=== PATIENT | male | born 1955 | race Caucasian/White ===

== ENCOUNTER 2018-11-15 10:23 | Inpatient (IN) ==
[2018-11-15] MEDS ORDERED: KETOROLAC TROMETHAMINE 15 MG/ML VIAL IV STA (10:46)
[2018-11-15] MEDS ORDERED: ONDANSETRON INJ 2 MG/ML 2 ML VIAL IV STA (10:46)
[2018-11-15] MEDS ORDERED: MoRPHine SULFATE 4 MG/ML 1 ML CARP\\VIAL IV PRN (10:46)
[2018-11-15] MEDS ORDERED: SODIUM CHLORIDE 0.9% 1000ML 1,000 ML IV SCH (11:00)
[2018-11-15 11:11] LABS: Appearance Urine Clear (Clear); Bilirubin Urine Negative (Negative); Color Urine Yellow; Glucose Urine UA Negative (Negative); Ketones Urine Negative (Negative); Leukocyte Esterase Urine Negative (Negative); Nitrite Urine Negative (Negative); Protein Urine Negative (Negative); Specific Gravity Urine 1.029 (1.000-1.030); Urobilinogen Urine Negative (Negative); pH Urine 5.5 (4.5-7.5)
[2018-11-15 11:23] LABS: Basophils # (auto) 0.02 K/uL (0-0.2); Basophils % (auto) 0.2 %; Eosinophils # (auto) 0.06 K/uL (0-0.5); Eosinophils % (auto) 0.6 %; Hematocrit (blood only) 44.5 % (42-52); Hemoglobin 15.4 g/dL (14.0-18.0); Immature Granulocytes # (auto) 0.01 K/uL (0.00-0.02); Immature Granulocytes % (auto) 0.1 %; Lymphocytes # (auto) 0.84 K/uL (1.2-3.4); Lymphocytes % (auto) 8.5 %; Mean Corpuscular Hgb Conc 34.6 g/dL (32-36); Mean Corpuscular Volume 96.1 fL (80-100); Mean Platelet Volume 10.4 fL (7.4-10.4); Monocytes # (auto) 0.63 K/uL (0.11-0.59); Monocytes % (auto) 6.3 %; Neutrophils # (auto) 8.38 K/uL (1.4-6.5); Neutrophils % (auto) 84.3 %; Platelet Count 196 K/uL (130-400); RDW Coefficient of Variation 12.8 % (11.5-14.5); RDW Standard Deviation 44.8 fL (36.4-46.3); Red Blood Count 4.63 M/uL (4.7-6.1); White Blood Count 9.94 K/uL (4.8-10.8)
[2018-11-15 11:32] LABS: Albumin Level 3.5 gm/dl (3.4-5.0); BUN Creatinine Ratio 22.7 (10-20); Creatinine Clr Calc Pharmacy 91.8 ml/min; Est GFR (African American) 95.4; Est GFR (Non-African American) 82.3; Potassium 3.6 mmol/L (3.5-5.1)
[2018-11-15 11:32] LABS: Influenza B virus by PCR Neg for Influ B (Neg)
[2018-11-15 11:33] LABS: Albumin Globulin Ratio 0.8 (0.9-2); Globulin 4.2 gm/dl (2.5-4.0); Total Protein 7.7 gm/dl (6.4-8.2)
--- NOTE | 2018-11-15 11:35 | XRay Report ---
XR chest 1V portable CLINICAL HISTORY: 63 years-old Male presenting with sob. TECHNIQUE: Portable upright AP view of the chest was obtained. COMPARISON: 04/26/2011. FINDINGS: Atherosclerosis of the aortic arch. Cardiac silhouette borderline enlarged. Mild pulmonary vascular p rominence. Overall coarsened lung markings. Suggestion of several nodular opacities. Osseous structur es normal. Lucency subjacent to the right hemidiaphragm may be due to skin folds versus pneumoperiton eum. IMPRESSION: 1. Nodular opacities may correlate with the prior known pulmonary nodules. Interval growth or new no dules cannot be excluded. Less likely, these could be on an inflammatory or infectious basis. 2. Apparent lucency subjacent to the right hemidiaphragm. This raises concern for pneumoperitoneum i n the appropriate clinical setting. Consider upright abdominal radiograph. The report will be called/faxed according to standard departmental protocol. Electronically signed by: Albert Meier M.D. 11/15/2018 11:33 AM
--- NOTE | 2018-11-15 11:57 | Emergency Department Note ---
Entered by Axel Quevedo acting as a scribe for History of Present Illness General Chief complaint: Cough Stated complaint: COUGH,FEVER,SEVERE ABD PAIN Time Seen by Provider: 11/15/18 10:44 Source: patient History of Present Illness Onset (ago): day(s) 4 Location: chest Pain Consistency: + other (persistent) Maximum Pain Intensity: 8 Quality: + other (productive cough) Associated symptoms: + other (Positive for abdominal pain, intermittent fever, and worsening SOB. Negative for nausea.) The patient is a 63 year old male who presents to the emergency department with complaints of a persistent cough beginning four days ago. The patient states that he woke up four days ago and felt as though he had some phlegm in his chest. He notes that his cough is productive and he reports that he has been producing yellow mucus. The patient states that he went to [facility] three days ago and was given prednisone and doxycycline. He notes that he woke up this morning with constant, severe, abdominal pain. He reports that his abdominal pain occasionally radiates upward to his diaphragm. The patient states that his stomach feels hard and he notes that his abdominal pain worsens with movement and when he coughs. He rates his abdominal pain as an 8/10. He also complains of an intermittent fever and worsening SOB. He denies any nausea. He reports that he has been having trouble with his lungs and has a biopsy scheduled. Home Medications Home Medications Medication Instructions Recorded Confirmed Type Tumeric 2 cap PO QAM 11/15/18 11/15/18 History albuterol sulfate [Ventolin HFA] 2 puff INHALATION Q6H PRN 11/15/18 11/15/18 History ascorbic acid (vitamin C) [Vitamin 100 mg PO DAILY 11/15/18 11/15/18 History C] aspirin 81 mg PO QAM 11/15/18 11/15/18 History coenzyme Q10 [CoQ-10] 300 mg PO QAM 11/15/18 11/15/18 History doxycycline hyclate 100 mg PO BID 11/15/18 11/15/18 History esomeprazole magnesium 20 mg PO DAILY 11/15/18 11/15/18 History ezetimibe [Zetia] 10 mg PO QAM 11/15/18 11/15/18 History fluticasone furoate [Arnuity 1 dose INHALATION QAM 11/15/18 11/15/18 History Ellipta] ibuprofen 800 mg PO QID PRN 11/15/18 11/15/18 History krill oil 500 mg PO DAILY 11/15/18 11/15/18 History levothyroxine 125 mcg PO DAILY 11/15/18 11/15/18 History omega 4-fgf-lhh-fish oil [Fish Oil] 3 cap PO QAM 11/15/18 11/15/18 History lyxbogdkfzrfe-mipjzktrxrgdg-NR 2 tab PO Q6H PRN 11/15/18 11/15/18 History [Tylenol Cold Head Congest Sevr] prednisone 0 mg PO UD 11/15/18 11/15/18 History rosuvastatin [Crestor] 20 mg PO QAM 11/15/18 11/15/18 History Allergies Allergy/AdvReac Type Severity Reaction Status Date / Time No Known Allergies Allergy Unknown Verified 11/15/18 11:50 Past Med/Surg History Medical History Asthma, moderate persistent (Chronic) Pulmonary nodules (Chronic) Hypothyroidism (Chronic) CAD (coronary artery disease) (Chronic) 04/2018-cardiac catheterization demonstrated diffuse minor irregularities with nonobstructive CAD Dyslipidemia (Chronic) Reflux esophagitis (Chronic) Viral disease (Inactive 04/29/11) Surgical History H/O colonoscopy (Chronic) 2010-diverticulosis throughout the sigmoid and ascending colon H/O vasectomy (Chronic) H/O repair of left rotator cuff (Chronic) History of surgical removal of ganglion cyst (Chronic) S/P right knee arthroscopy (Chronic) S/P left knee arthroscopy (Chronic) Family History Father Lung cancer Brother Heart attack, Onset Age: 56 Social History Current Living Situation: Spouse Other Information That Helps Us Care for You: No Feels Safe at Home: Yes Safety Concerns: Feels Safe At This Time Smoking Status: Never smoker Do You Dip or Chew Tobacco: No Second Hand Exposure: No Tobacco Cessation Education Requested by Patient: No Hx Alcohol Use: Yes Alcohol Intake Frequency: 0-2 drinks per day Hx Substance Use: No Beliefs That Will Affect Care: None Preferred Language: Ukrainian Communication Ability: Effective Fire Tender Required: No Review of Systems See HPI for pertinent positives & negatives. and A total of 10 systems reviewed and were otherwise negative Physical Exam Vital Signs Vital Signs - 24 hr 11/15/18 10:25 11/15/18 10:48 11/15/18 10:51 Temperature 37.0 C Temperature Source Oral Sepsis Recent Fever Within 48 Hours Yes Sepsis New/Unexplained Change in Mental Status No Sepsis Action Taken by Nursing No Action Required Pulse Rate 103 H Pulse Rate [Left Radial] 96 H Pulse Rhythm [Left Radial] Pulse Strength [Left Radial] Respiratory Rate 20 20 Respiratory Effort / Characteristics Respiratory Depth Respiratory Pattern Blood Pressure 124/72 Blood Pressure [Left Arm] 125/65 Blood Pressure Mean 89 Blood Pressure Mean [Left Arm] 85 Blood Pressure Position [Left Arm] Pulse Oximetry 98 99 Oxygen Delivery Method Room Air Room Air Room Air 11/15/18 12:14 11/15/18 13:20 11/15/18 13:57 Temperature Temperature Source Sepsis Recent Fever Within 48 Hours Sepsis New/Unexplained Change in Mental Status Sepsis Action Taken by Nursing Pulse Rate Pulse Rate [Left Radial] 92 H 93 H Pulse Rhythm [Left Radial] Pulse Strength [Left Radial] Respiratory Rate 20 20 Respiratory Effort / Characteristics Non-Labored Spontaneous Respiratory Depth Normal Respiratory Pattern Regular Blood Pressure Blood Pressure [Left Arm] 133/66 139/69 Blood Pressure Mean Blood Pressure Mean [Left Arm] 88 92 Blood Pressure Position [Left Arm] Pulse Oximetry 98 93 Oxygen Delivery Method Room Air Room Air Room Air 11/15/18 14:27 11/15/18 15:03 11/15/18 15:29 Temperature 37.0 C Temperature Source Oral Sepsis Recent Fever Within 48 Hours Sepsis New/Unexplained Change in Mental Status Sepsis Action Taken by Nursing Pulse Rate Pulse Rate [Left Radial] 92 H 90 Pulse Rhythm [Left Radial] Regular Pulse Strength [Left Radial] Normal Respiratory Rate 18 18 Respiratory Effort / Characteristics Non-Labored Spontaneous Non-Labored Spontaneous Respiratory Depth Normal Normal Respiratory Pattern Regular Regular Blood Pressure Blood Pressure [Left Arm] 114/67 116/66 Blood Pressure Mean Blood Pressure Mean [Left Arm] 82 82 Blood Pressure Position [Left Arm] Lying Lying Pulse Oximetry 94 94 Oxygen Delivery Method Room Air Room Air Room Air GENERAL: Patient is in no acute distress. HEENT: No acute trauma, normocephalic atraumatic, mucous membranes moist, no nasal congestion, no scleral icterus. NECK: No stridor, no adenopathy, no meningismus, trachea is midline. LUNGS: Diminished breath sounds bilaterally, scattered wheezes, no crackles, dry cough noted. HEART: Without murmurs gallops or rubs, regular rate and rhythm. ABDOMEN: Soft, bowel sounds positive, no hernias, no peritonitis, moderately tender in bilateral lower abdomen. EXTREMITIES: No cyanosis or edema, full range of motion of all the joints without pain or difficulty, no signs for acute trauma. NEUROLOGIC: Oriented x 3, no acute motor or sensory deficits, no focal weakness. SKIN: No rash, no jaundice, no diaphoresis. Course 1045: Past medical records reviewed. The patient was evaluated in room B7, and a complete history and physical examination were performed. 1219: I reevaluated and updated the patient. 1226: I discussed the lalo's case with Dr. [facility] CUATE Diggs. He will come to see the patient. 1232: Upon reevaluation, the patient is stable. I discussed the results and treatment plan with the patient. He verbalizes understanding and agreement. I discussed the patient's case with [facility]. The patient will be evaluated for further management and care. Consultations Consultation #1: I discussed the lalo's case with Dr. Kyle Son [facility] CUATE [facility]gs. He will come to see the patient. Time: 12:26 Consultation #2: I reviewed the patient's case with [facility]. She will evaluate the patient for further management. Time: 12:32 Administered Medications Hydrocodone Bit/Homatropine Methylb (Hycodan) 5 ml PO Q6H PRN PRN Reason: Cough Stop: 11/29/18 14:26 Last Admin: 11/15/18 15:38 Dose: 5 ml Dextrose/Sodium Chloride (D5w And Nss) 1,000 mls @ 125 mls/hr IV .Q8H GUI Stop: 12/15/18 14:29 Last Admin: 11/15/18 15:38 Dose: 125 mls/hr Morphine Sulfate (Morphine Sulfate) 4 mg IV Q4H PRN PRN Reason: Pain Stop: 11/29/18 13:16 Last Admin: 11/15/18 13:54 Dose: 4 mg Discontinued Medications Albuterol (Duoneb) 3 ml NEB NOW STA Stop: 11/15/18 12:24 Last Admin: 11/15/18 12:34 Dose: 3 ml Sodium Chloride (Nss 1000ml) 1,000 mls @ 999 mls/hr IV .Q1H1M GUI Stop: 11/15/18 12:00 Last Infusion: 11/15/18 12:14 Dose: 0 mls/hr Admin: 11/15/18 11:12 Dose: 999 mls/hr Piperacillin Sod/Tazobactam Sod (Zosyn) 4.5 gm in 120 mls @ 240 mls/hr IV NOW ONE Stop: 11/15/18 12:52 Last Infusion: 11/15/18 13:15 Dose: 0 mls/hr Admin: 11/15/18 12:34 Dose: 240 mls/hr Ioversol (Optiray 320 100ml) 94 ml IV ONCE PRN PRN Reason: Interaction Checking Stop: 11/19/18 12:11 Last Admin: 11/15/18 12:12 Dose: 94 ml Ketorolac Tromethamine (Toradol) 15 mg IV NOW STA Stop: 11/15/18 10:47 Last Admin: 11/15/18 11:12 Dose: 15 mg Morphine Sulfate (Morphine Sulfate) 4 mg IV Q15M PRN PRN Reason: Pain Stop: 11/29/18 10:45 Last Admin: 11/15/18 11:12 Dose: 4 mg Ondansetron HCl (Zofran) 4 mg IV NOW STA Stop: 11/15/18 10:47 Last Admin: 11/15/18 11:12 Dose: 4 mg Medical Decision Making Differential Diagnosis Differential diagnoses include: pneumonia, bronchitis, influenza, flu-like illness, bowel obstruction, bowel perforation, hernia, diverticulitis, UTI, and musculoskeletal pain. Medical Records Attestation: I reviewed the patient's medical records. Home Medications Current Medication List: was personally reviewed by me Laboratory Data Attestation: I reviewed the patient's lab results. Result diagrams: 11/15/18 11:00 11/15/18 11:00 Lab Results 11/15/18 11/15/18 11/15/18 Range/Units 10:35 10:45 11:00 WBC 9.94 (4.8-10.8) K/uL RBC 4.63 L (4.7-6.1) M/uL Hgb 15.4 (14.0-18.0) g/dL Hct 44.5 (42-52) % MCV 96.1 (80-100) fL MCH 33.3 (25-34) pg MCHC 34.6 (32-36) g/dL RDW Std Deviation 44.8 (36.4-46.3) fL RDW Coeff of Lucie 12.8 (11.5-14.5) % Plt Count 196 (130-400) K/uL MPV 10.4 (7.4-10.4) fL Immature Gran % (Auto) 0.1 % Neut % (Auto) 84.3 % Lymph % (Auto) 8.5 % [place] % (Auto) 6.3 % Eos % (Auto) 0.6 % Baso % (Auto) 0.2 % Immature Gran # (Auto) 0.01 (0.00-0.02) K/uL Neut # (Auto) 8.38 H (1.4-6.5) K/uL Lymph # (Auto) 0.84 L (1.2-3.4) K/uL [place] # (Auto) 0.63 H (0.11-0.59) K/uL Eos # (Auto) 0.06 (0-0.5) K/uL Baso # (Auto) 0.02 (0-0.2) K/uL Sodium (136-145) mmol/L Potassium (3.5-5.1) mmol/L Chloride (98-107) mmol/L Carbon Dioxide (21-32) mmol/L Anion Gap (3-11) BUN (7-18) mg/dl Creatinine (0.6-1.4) mg/dl Est Cr Clr Drug Dosing ml/min Est GFR ( Amer) Est GFR (Non-Af Amer) BUN/Creatinine Ratio (10-20) Glucose (70-99) mg/dl Calcium (8.5-10.1) mg/dl Total Bilirubin (0.2-1) mg/dl AST (15-37) U/L ALT (12-78) U/L Alkaline Phosphatase (45-117) U/L Total Protein (6.4-8.2) gm/dl Albumin (3.4-5.0) gm/dl Globulin (2.5-4.0) gm/dl Albumin/Globulin Ratio (0.9-2) Lipase (73-393) U/L Urine Color Yellow Urine Appearance Clear (Clear) Urine pH 5.5 (4.5-7.5) Ur Specific [place] 1.029 (1.000-1.030) Urine Protein Negative (Negative) Urine Glucose (UA) Negative (Negative) Urine Ketones Negative (Negative) Urine Blood Negative (Negative) Urine Nitrite Negative (Negative) Urine Bilirubin Negative (Negative) Urine Urobilinogen Negative (Negative) Ur Leukocyte Esterase Negative (Negative) Influenza Type A (PCR) Pos for Influ A A* (Neg) Influenza Type B (PCR) Neg for Influ B (Neg) 11/15/18 Range/Units 11:00 WBC (4.8-10.8) K/uL RBC (4.7-6.1) M/uL Hgb (14.0-18.0) g/dL Hct (42-52) % MCV (80-100) fL MCH (25-34) pg MCHC (32-36) g/dL RDW Std Deviation (36.4-46.3) fL RDW Coeff of Lucie (11.5-14.5) % Plt Count (130-400) K/uL MPV (7.4-10.4) fL Immature Gran % (Auto) % Neut % (Auto) % Lymph % (Auto) % [place] % (Auto) % Eos % (Auto) % Baso % (Auto) % Immature Gran # (Auto) (0.00-0.02) K/uL Neut # (Auto) (1.4-6.5) K/uL Lymph # (Auto) (1.2-3.4) K/uL [place] # (Auto) (0.11-0.59) K/uL Eos # (Auto) (0-0.5) K/uL Baso # (Auto) (0-0.2) K/uL Sodium 138 (136-145) mmol/L Potassium 3.6 (3.5-5.1) mmol/L Chloride 104 (98-107) mmol/L Carbon Dioxide 26 (21-32) mmol/L Anion Gap 8.0 (3-11) BUN 22 H (7-18) mg/dl Creatinine 0.98 (0.6-1.4) mg/dl Est Cr Clr Drug Dosing 91.8 ml/min Est GFR ( Amer) 95.4 Est GFR (Non-Af Amer) 82.3 BUN/Creatinine Ratio 22.7 H (10-20) Glucose 94 (70-99) mg/dl Calcium 9.0 (8.5-10.1) mg/dl Total Bilirubin 1.0 (0.2-1) mg/dl AST 23 (15-37) U/L ALT 35 (12-78) U/L Alkaline Phosphatase 70 (45-117) U/L Total Protein 7.7 (6.4-8.2) gm/dl Albumin 3.5 (3.4-5.0) gm/dl Globulin 4.2 H (2.5-4.0) gm/dl Albumin/Globulin Ratio 0.8 L (0.9-2) Lipase 118 (73-393) U/L Urine Color Urine Appearance (Clear) Urine pH (4.5-7.5) Ur Specific [place] (1.000-1.030) Urine Protein (Negative) Urine Glucose (UA) (Negative) Urine Ketones (Negative) Urine Blood (Negative) Urine Nitrite (Negative) Urine Bilirubin (Negative) Urine Urobilinogen (Negative) Ur Leukocyte Esterase (Negative) Influenza Type A (PCR) (Neg) Influenza Type B (PCR) (Neg) Imaging Data Radiologist's Impression: Radiology results as stated below per my review and the radiologist's interpretation: XR chest 1V portable FINDINGS: Atherosclerosis of the aortic arch. Cardiac silhouette borderline enlarged. Mild pulmonary vascular prominence. Overall coarsened lung markings. Suggestion of several nodular opacities. Osseous structures normal. Lucency subjacent to the right hemidiaphragm may be due to skin folds versus pneumoperitoneum. IMPRESSION: 1. Nodular opacities may correlate with the prior known pulmonary nodules. Interval growth or new nodules cannot be excluded. Less likely, these could be on an inflammatory or infectious basis. 2. Apparent lucency subjacent to the right hemidiaphragm. This raises concern for pneumoperitoneum in the appropriate clinical setting. Consider upright abdominal radiograph. The report will be called/faxed according to standard departmental protocol. Electronically signed by: Albert Meier M.D. 11/15/2018 11:[address] OF THE ABDOMEN AND PELVIS WITH CONTRAST FINDINGS: Imaged portions of the lower chest demonstrate an 8 mm subpleural nodule within the left lower lobe on image 89 of 461 which contains a central calcification. This is likely benign. A few additional subpleural nodules within the right middle lobe are partially imaged. These are indeterminate but probably benign. Moderate pneumoperitoneum is noted due to to perforated sigmoid diverticulitis. There is extensive sigmoid diverticulosis. There is mild infiltration adjacent to the proximal sigmoid colon which reflects the site of perforation. There is no abscess. There is no bowel obstruction. The liver, spleen, adrenal glands, kidneys and pancreas are unremarkable. There is no biliary or pancreatic ductal dilatation. Moderate atherosclerotic plaque of the abdominal aorta is noted. Major vasculature is patent. The appendix is normal. Peripherally calcified peritoneal was body is noted. Fat-containing bilateral inguinal hernias are noted. IMPRESSION: Findings consistent with perforated acute sigmoid diverticulitis. Moderate pneumoperitoneum. Mild pericolonic infiltration. No abscess. Findings discussed with Dr. Umana at time of dictation. Electronically signed by: Colt Lay M.D. 11/15/2018 12:24 PM ECG Data Attestation: I personally reviewed and interpreted this ECG as follows: Indication: abdominal pain Rate (beats per minute): 88 Rhythm: normal sinus Findings: no ST elevation Comparison ECG Date: from (04/27/2011) Change: the following changes noted (Compared to prior, flattened T waves are new.) Additional Comments: Flattened T waves laterally. Blood Pressure Blood Pressure Findings: Elevated blood pressure Blood Pressure Disposition: elevated BP felt to be situational MDM Narrative There is no leukocytosis or worrisome anemia. Influenza testing is positive for influenza A. No significant electrolyte abnormality, kidney failure, hepatitis or pancreatitis. Urinalysis does not show infection. Chest film did not show pneumonia, the radiologist questioned a small area of free air. Abdominal and pelvis CT demonstrates free intra-abdominal air, no bowel obstruction. The air was thought secondary to a perforated diverticulum. EKG shows a sinus rhythm, no acute ischemia. The patient received IV saline, he received IV Toradol, IV Zofran and IV morphine. He received IV Zosyn as antibiotic coverage. He was given a DuoNeb. The patient has influenza A, this has led to his cough and respiratory complaints. I suspect he perforated a diverticulum from coughing. This has led to the abdominal pain and the free air. I did speak with general surgery, I spoke with the patient and case management. The on-call hospitalist was consulted. Impression & Plan Intra-abdominal free air of unknown etiology, Cough, Influenza A Discharge Plan Visit Data *Final* Discharge Date/Time: 11/15/18 13:58 Chief Complaint: Cough Stated Complaint: COUGH,FEVER,SEVERE ABD PAIN ED Provider: Nirav Umana Discharge Problem: Intra-abdominal free air of unknown etiology, Cough, Influenza A Patient Disposition: Admitted As Inpatient Discharge Instructions Interventions: ED Discharge Assessment Last Done: 11/15/18 13:58 The philippeibe's documentation has been prepared under my direction and personally reviewed by me in its entirety. I confirm that the note above accurately reflects all work, treatment, procedures, and medical decision making performed by me.
[2018-11-15] MEDS ORDERED: IOVERSOL 100ml IV PRN (12:12)
[2018-11-15] MEDS ORDERED: PIPERACILLIN/TAZOBACTAM 4.5 GM/120 ML BAG IV ONE (12:23)
[2018-11-15] MEDS ORDERED: ALBUT/IPRATROP 3MG/0.5MG NEB 3 ML VIAL NEB STA (12:23)
--- NOTE | 2018-11-15 12:25 | CT Scan Report ---
CT OF THE ABDOMEN AND PELVIS WITH CONTRAST CLINICAL HISTORY: Severe lower abdominal pain. COMPARISON STUDY: None. TECHNIQUE: Following IV administration of 94 mL of Optiray-320, axial images of the abdomen and pelvi s were obtained from the lung bases to the proximal femurs. Images were reviewed in the axial, sagitt al, and coronal planes. IV contrast was administered without complication. Automated exposure contro l was utilized for the study. A dose lowering technique was utilized adhering to the principles of A ALEX. CT DOSE: 959.58 mGycm FINDINGS: Imaged portions of the lower chest demonstrate an 8 mm subpleural nodule within the left lo wer lobe on image 89 of 461 which contains a central calcification. This is likely benign. A few jean tional subpleural nodules within the right middle lobe are partially imaged. These are indeterminate but probably benign. Moderate pneumoperitoneum is noted due to to perforated sigmoid diverticulitis. There is extensive sigmoid diverticulosis. There is mild infiltration adjacent to the proximal sigmoi d colon which reflects the site of perforation. There is no abscess. There is no bowel obstruction. T he liver, spleen, adrenal glands, kidneys and pancreas are unremarkable. There is no biliary or pancr eatic ductal dilatation. Moderate atherosclerotic plaque of the abdominal aorta is noted. Major vascu lature is patent. The appendix is normal. Peripherally calcified peritoneal was body is noted. Fat-co ntaining bilateral inguinal hernias are noted. IMPRESSION: Findings consistent with perforated acute sigmoid diverticulitis. Moderate pneumoperiton eum. Mild pericolonic infiltration. No abscess. Findings discussed with Dr. Umana at time of dictatio n. Electronically signed by: Colt Lay M.D. 11/15/2018 12:24 PM
[2018-11-15] MEDS ORDERED: PIPERACILL/TAZOBAC CONSULT ACTIVE PRN (13:17)
[2018-11-15] MEDS: MoRPHine SULFATE 4 MG/ML 1 ML CARP\\VIAL IV PRN ×3 (13:54→22:51)
--- NOTE | 2018-11-15 14:12 | Surgery Consultation ---
Date of Consultation November 15, 2018 Assessment & Plan (1) Perforation of sigmoid colon due to diverticulitis: CT shows free air clinically pt looks not too bad no leukocytosis vitals are stable abdominal exam is relatively mild pt states he is feeling better than earlier today discussed options of OR now vs trial of conservative tx and the pros/cons/risks of each discussed probably 50/50 of needing OR urgently d/w medicine. will keep NPO and start Zosyn recheck labs serial abdominal exams. low threshold to take to the OR (2) Influenza A: History of Present Illness History of Present Illness 63 y/o with primary c/o of cough since [place]. was seen in an [facility] and started on steroids and antibiotics. awoke this AM with sharp lower abdominal pain which brought him to the ER. Allergies Allergy/AdvReac Type Severity Reaction Status Date / Time No Known Allergies Allergy Unknown Verified 11/15/18 11:50 Home Medications Home Medications Medication Instructions Recorded Confirmed Type Tumeric 2 cap PO QAM 11/15/18 11/15/18 History albuterol sulfate [Ventolin HFA] 2 puff INHALATION Q6H PRN 11/15/18 11/15/18 History ascorbic acid (vitamin C) [Vitamin 100 mg PO DAILY 11/15/18 11/15/18 History C] aspirin 81 mg PO QAM 11/15/18 11/15/18 History coenzyme Q10 [CoQ-10] 300 mg PO QAM 11/15/18 11/15/18 History doxycycline hyclate 100 mg PO BID 11/15/18 11/15/18 History esomeprazole magnesium 20 mg PO DAILY 11/15/18 11/15/18 History ezetimibe [Zetia] 10 mg PO QAM 11/15/18 11/15/18 History fluticasone furoate [Arnuity 1 dose INHALATION QAM 11/15/18 11/15/18 History Ellipta] ibuprofen 800 mg PO QID PRN 11/15/18 11/15/18 History krill oil 500 mg PO DAILY 11/15/18 11/15/18 History levothyroxine 125 mcg PO DAILY 11/15/18 11/15/18 History omega 2-sot-ddm-fish oil [Fish Oil] 3 cap PO QAM 11/15/18 11/15/18 History krznfsonjblkg-dvrowcdsbgvcr-SY 2 tab PO Q6H PRN 11/15/18 11/15/18 History [Tylenol Cold Head Congest Sevr] prednisone 0 mg PO UD 11/15/18 11/15/18 History rosuvastatin [Crestor] 20 mg PO QAM 11/15/18 11/15/18 History Patient History Medical History Viral disease (Inactive 04/29/11) Family History Other No significant family history Social History Current Living Situation: Spouse Other Information That Helps Us Care for You: No Feels Safe at Home: Yes Safety Concerns: Feels Safe At This Time Smoking Status: Never smoker Do You Dip or Chew Tobacco: No Second Hand Exposure: No Tobacco Cessation Education Requested by Patient: No Hx Alcohol Use: Yes Alcohol Intake Frequency: 0-2 drinks per day Hx Substance Use: No Beliefs That Will Affect Care: None Preferred Language: Gambian Communication Ability: Effective Resp Therapist Required: No Review of Systems cough abdominal pain Physical Exam 2 Vital Signs (Past 24 Hours): Last Vital Signs Temp 37.0 C 11/15/18 10:25 Pulse 93 H 11/15/18 13:57 Resp 20 11/15/18 13:57 BP 139/69 11/15/18 13:57 Pulse Ox 93 11/15/18 13:57 Physical Exam: alert/oriented. Heent: PERRLA. EOMI Heart: RRR lungs: faint wheezes/decreased BS's in bases b/l abdomen: soft. ? mild distenension. +supra-pubic and LLQ TTP no peritoneal signs ext: no c/c/e
[2018-11-15] MEDS ORDERED: ACETAMINOPHEN 325 MG TAB PO PRN (14:27)
--- NOTE | 2018-11-15 14:35 | History & Physical Report ---
Date of Service November 15, 2018 Assessment & Plan (1) Perforation of sigmoid colon due to diverticulitis: -Admit to telemetry -Patient presenting from home with reports of abdominal pain that began this morning -In the ED, CT ABD/pelvis showing acute perforated sigmoid diverticulitis -While in the ED, patient has remained hemodynamically stable and labs are unremarkable -Evaluated in the ED by Dr. Wright with general surgery who advises conservative approach for now however low threshold for OR if symptoms worsen -N.p.o., IVF -IV Zosyn -Noted colonoscopy 2010 that showed diverticulosis throughout the sigmoid and ascending colon (2) Influenza A: (3) Asthma, moderate persistent: -Positive influenza A testing in ED -will start Tamiflu -No wheezing on exam, saturating well on room air -CXR negative for infiltrate -Continue home inhalers (4) CAD (coronary artery disease): -Stable, no reports pf chest pain -Holding aspirin, Zetia, statin, fish oil secondary to n.p.o. status; resume when okay with surgery (5) Reflux esophagitis: -IV PPI while n.p.o. (6) Hypothyroidism: -IV levothyroxine while n.p.o. (7) DVT prophylaxis: -SCDs due to ruptured diverticulitis, possible OR History of Present Illness Chief Complaint: Abdominal pain Primary Care Provider: Dr. Harmon 63-year-old male who presents to the ED with abdominal pain. Patient reports he developed cold-like symptoms on 11/11. Patient was seen at [facility] on 11/13 and given prescriptions for doxycycline and prednisone. Patient reports he has been running intermittent fevers as high as 102. He reports a harsh, dry , nonproductive cough. This morning, he developed lower abdominal pain. It was progressively getting worse he presented to the ED for further evaluation. Patient reports a normal bowel movement yesterday morning. No bright red bleeding per rectum or dark tarry stools. Denies nausea or vomiting. No lightheadedness, dizziness, diaphoresis, syncopal events. He denies urinary symptoms. In the ED, CT ABD/pelvis is showing acute perforated sigmoid diverticulitis. Patient remained hemodynamically stable while in the ED. Labs are unremarkable as well. Patient was evaluated by Dr. Wright (general surgery) at the bedside in the ED. Patient was given IVF, IV Zosyn, IV Zofran, IV morphine, IV Toradol. Allergies Allergy/AdvReac Type Severity Reaction Status Date / Time No Known Allergies Allergy Unknown Verified 11/15/18 11:50 Home Medications Home Medications Medication Instructions Recorded Confirmed Type Tumeric 2 cap PO QAM 11/15/18 11/15/18 History albuterol sulfate [Ventolin HFA] 2 puff INHALATION Q6H PRN 11/15/18 11/15/18 History ascorbic acid (vitamin C) [Vitamin 100 mg PO DAILY 11/15/18 11/15/18 History C] aspirin 81 mg PO QAM 11/15/18 11/15/18 History coenzyme Q10 [CoQ-10] 300 mg PO QAM 11/15/18 11/15/18 History doxycycline hyclate 100 mg PO BID 11/15/18 11/15/18 History esomeprazole magnesium 20 mg PO DAILY 11/15/18 11/15/18 History ezetimibe [Zetia] 10 mg PO QAM 11/15/18 11/15/18 History fluticasone furoate [Arnuity 1 dose INHALATION QA 11/15/18 11/15/18 History Ellipta] ibuprofen 800 mg PO QID PRN 11/15/18 11/15/18 History krill oil 500 mg PO DAILY 11/15/18 11/15/18 History levothyroxine 125 mcg PO DAILY 11/15/18 11/15/18 History omega 4-zvy-bnr-fish oil [Fish Oil] 3 cap PO QAM 11/15/18 11/15/18 History rubnibjpvosbc-bxsnzbnepyjfr-WP 2 tab PO Q6H PRN 11/15/18 11/15/18 History [Tylenol Cold Head Congest Sevr] prednisone 0 mg PO UD 11/15/18 11/15/18 History rosuvastatin [Crestor] 20 mg PO QAM 11/15/18 11/15/18 History Past Med/Surg History Medical History Asthma, moderate persistent (Chronic) Pulmonary nodules (Chronic) Hypothyroidism (Chronic) CAD (coronary artery disease) (Chronic) 04/2018-cardiac catheterization demonstrated diffuse minor irregularities with nonobstructive CAD Dyslipidemia (Chronic) Reflux esophagitis (Chronic) Viral disease (Inactive 04/29/11) Surgical History H/O colonoscopy (Chronic) 2010-diverticulosis throughout the sigmoid and ascending colon H/O vasectomy (Chronic) H/O repair of left rotator cuff (Chronic) History of surgical removal of ganglion cyst (Chronic) S/P right knee arthroscopy (Chronic) S/P left knee arthroscopy (Chronic) Family History Father Lung cancer Brother Heart attack, Onset Age: 56 Social History Current Living Situation: Spouse Other Information That Helps Us Care for You: No Feels Safe at Home: Yes Safety Concerns: Feels Safe At This Time Smoking Status: Never smoker Do You Dip or Chew Tobacco: No Second Hand Exposure: No Tobacco Cessation Education Requested by Patient: No Hx Alcohol Use: Yes Alcohol Intake Frequency: 0-2 drinks per day Hx Substance Use: No Beliefs That Will Affect Care: None Preferred Language: Turkmen Communication Ability: Effective Lead Bi Developer Required: No Review of Systems ROS per HPI, all other systems reviewed and negative Physical Exam 2 Vital Signs (Past 24 Hours): Last Vital Signs Temp 37.0 C 11/15/18 10:25 Pulse 93 H 11/15/18 13:57 Resp 20 11/15/18 13:57 BP 139/69 11/15/18 13:57 Pulse Ox 93 11/15/18 13:57 Constitutional: WD/WN, vitals as above + ill appearing Eyes: PERRL, conjunctivae normal, anicteric sclerae ENMT: external ear and nose normal, oropharynx normal Respiratory: normal respiratory effort, lungs clear to auscultation + cough (Harsh, dry) Cardiovascular: Rate/Rhythm: regular rate and regular rhythm Vessels: normal peripheral pulses Extremities: no edema Gastrointestinal (Abdomen): Inspection/Auscultation: + abdomen distended ( Mildly) and normal bowel sounds Percussion/Palpation: + abdomen tender ( Lower abdomen) and abdomen soft; no hepatosplenomegaly Musculoskeletal: no cyanosis or clubbing, extremities motor strength 5/5 Skin: no rashes, warm and dry Neurologic: PERRL, EOMI, accommodation nl, no face palsy, no dysarthria Psychiatric: A+Ox3, euthymic affect Results & Data Laboratory Results Laboratory Last Values WBC 9.94 K/uL (4.8-10.8) 11/15/18 11:00 RBC 4.63 M/uL (4.7-6.1) L 11/15/18 11:00 Hgb 15.4 g/dL (14.0-18.0) 11/15/18 11:00 Hct 44.5 % (42-52) 11/15/18 11:00 MCV 96.1 fL (80-100) 11/15/18 11:00 MCH 33.3 pg (25-34) 11/15/18 11:00 MCHC 34.6 g/dL (32-36) 11/15/18 11:00 RDW Std Deviation 44.8 fL (36.4-46.3) 11/15/18 11:00 RDW Coeff of Lucie 12.8 % (11.5-14.5) 11/15/18 11:00 Plt Count 196 K/uL (130-400) 11/15/18 11:00 MPV 10.4 fL (7.4-10.4) 11/15/18 11:00 Immature Gran % (Auto) 0.1 % 11/15/18 11:00 Neut % (Auto) 84.3 % 11/15/18 11:00 Lymph % (Auto) 8.5 % 11/15/18 11:00 [place] % (Auto) 6.3 % 11/15/18 11:00 Eos % (Auto) 0.6 % 11/15/18 11:00 Baso % (Auto) 0.2 % 11/15/18 11:00 Immature Gran # (Auto) 0.01 K/uL (0.00-0.02) 11/15/18 11:00 Neut # (Auto) 8.38 K/uL (1.4-6.5) H 11/15/18 11:00 Lymph # (Auto) 0.84 K/uL (1.2-3.4) L 11/15/18 11:00 [place] # (Auto) 0.63 K/uL (0.11-0.59) H 11/15/18 11:00 Eos # (Auto) 0.06 K/uL (0-0.5) 11/15/18 11:00 Baso # (Auto) 0.02 K/uL (0-0.2) 11/15/18 11:00 Sodium 138 mmol/L (136-145) 11/15/18 11:00 Potassium 3.6 mmol/L (3.5-5.1) 11/15/18 11:00 Chloride 104 mmol/L (98-107) 11/15/18 11:00 Carbon Dioxide 26 mmol/L (21-32) 11/15/18 11:00 Anion Gap 8.0 (3-11) 11/15/18 11:00 BUN 22 mg/dl (7-18) H 11/15/18 11:00 Creatinine 0.98 mg/dl (0.6-1.4) 11/15/18 11:00 Est Cr Clr Drug Dosing 91.8 ml/min 11/15/18 11:00 Est GFR ( Amer) 95.4 11/15/18 11:00 Est GFR (Non-Af Amer) 82.3 11/15/18 11:00 BUN/Creatinine Ratio 22.7 (10-20) H 11/15/18 11:00 Glucose 94 mg/dl (70-99) 11/15/18 11:00 Calcium 9.0 mg/dl (8.5-10.1) 11/15/18 11:00 Total Bilirubin 1.0 mg/dl (0.2-1) 11/15/18 11:00 AST 23 U/L (15-37) 11/15/18 11:00 ALT 35 U/L (12-78) 11/15/18 11:00 Alkaline Phosphatase 70 U/L (45-117) 11/15/18 11:00 Total Protein 7.7 gm/dl (6.4-8.2) 11/15/18 11:00 Albumin 3.5 gm/dl (3.4-5.0) 11/15/18 11:00 Globulin 4.2 gm/dl (2.5-4.0) H 11/15/18 11:00 Albumin/Globulin Ratio 0.8 (0.9-2) L 11/15/18 11:00 Lipase 118 U/L (73-393) 11/15/18 11:00 Urine Color Yellow 11/15/18 10:45 Urine Appearance Clear (Clear) 11/15/18 10:45 Urine pH 5.5 (4.5-7.5) 11/15/18 10:45 Ur Specific [place] 1.029 (1.000-1.030) 11/15/18 10:45 Urine Protein Negative (Negative) 11/15/18 10:45 Urine Glucose (UA) Negative (Negative) 11/15/18 10:45 Urine Ketones Negative (Negative) 11/15/18 10:45 Urine Blood Negative (Negative) 11/15/18 10:45 Urine Nitrite Negative (Negative) 11/15/18 10:45 Urine Bilirubin Negative (Negative) 11/15/18 10:45 Urine Urobilinogen Negative (Negative) 11/15/18 10:45 Ur Leukocyte Esterase Negative (Negative) 11/15/18 10:45 Influenza Type A (PCR) Pos for Influ A (Neg) A* 11/15/18 10:35 Influenza Type B (PCR) Neg for Influ B (Neg) 11/15/18 10:[address] ABD/PELVIS IMPRESSION: Findings consistent with perforated acute sigmoid diverticulitis. Moderate pneumoperitoneum. Mild pericolonic infiltration. No abscess. Findings discussed with Dr. Umana at time of dictation. Code Status & VTE Plan VTE Prophylaxis Plan VTE Prophylaxis will be ordered: Yes Supervising Physician Co-Signing Physician Notes I saw this patient with the PITCH FILLER, I participated in the history, physical, review of systems, and physical exam. I reviewed the medications with the patient and the PITCH FILLER and helped reconcile the medications. I helped take a detailed family and social history as well. I formulated the assessment and plan personally with the PITCH FILLER went over it with the patient.
[2018-11-15] MEDS: D5W AND NSS 1,000 ML IV SCH (15:38)
[2018-11-15] MEDS: HYDROCODONE/HOMATROPINE SYRUP 5MG/1.5MG 5ML UDP PO PRN (15:38)
[2018-11-15] MEDS: PIPERACILLIN/TAZOBACTAM 3.375 GM in DEXTROSE 5% 100 ML IV SCH (18:15)
[2018-11-15] MEDS: OSELTAMIVIR PHOSPHATE SUSP 75 MG/12.5 ML UDP PO SCH (21:57)
[2018-11-15] MEDS ORDERED: ACETAMINOPHEN 65 ML IV ONE (23:13)
[2018-11-15] MEDS ORDERED: ACETAMINOPHEN 65 ML IV PRN (23:15)
[2018-11-16] MEDS: PIPERACILLIN/TAZOBACTAM 3.375 GM in DEXTROSE 5% 100 ML IV SCH ×3 (02:46→17:33)
[2018-11-16] MEDS: MoRPHine SULFATE 4 MG/ML 1 ML CARP\\VIAL IV PRN ×3 (03:03→12:26)
[2018-11-16] MEDS: D5W AND NSS 1,000 ML IV SCH ×2 (03:47→15:29)
[2018-11-16] MEDS: HYDROCODONE/HOMATROPINE SYRUP 5MG/1.5MG 5ML UDP PO PRN ×2 (04:14→18:38)
[2018-11-16 06:54] LABS: Basophils # (auto) 0.02 K/uL (0-0.2); Basophils % (auto) 0.2 %; Eosinophils # (auto) 0.04 K/uL (0-0.5); Eosinophils % (auto) 0.4 %; Hematocrit (blood only) 40.3 % (42-52); Hemoglobin 13.5 g/dL (14.0-18.0); Immature Granulocytes # (auto) 0.03 K/uL (0.00-0.02); Immature Granulocytes % (auto) 0.3 %; Lymphocytes # (auto) 1.06 K/uL (1.2-3.4); Lymphocytes % (auto) 11.2 %; Mean Corpuscular Hgb Conc 33.5 g/dL (32-36); Mean Corpuscular Volume 98.3 fL (80-100); Mean Platelet Volume 10.3 fL (7.4-10.4); Monocytes # (auto) 0.81 K/uL (0.11-0.59); Monocytes % (auto) 8.6 %; Neutrophils # (auto) 7.51 K/uL (1.4-6.5); Neutrophils % (auto) 79.3 %; Platelet Count 183 K/uL (130-400); RDW Coefficient of Variation 13.1 % (11.5-14.5); RDW Standard Deviation 47.3 fL (36.4-46.3); White Blood Count 9.47 K/uL (4.8-10.8)
[2018-11-16 07:34] LABS: Albumin Globulin Ratio 0.7 (0.9-2); Albumin Level 2.9 gm/dl (3.4-5.0); BUN Creatinine Ratio 15.3 (10-20); Bilirubin,Total 1.5 mg/dl (0.2-1); Calcium 7.9 mg/dl (8.5-10.1); Creatinine Clr Calc Pharmacy 93.7 ml/min; Est GFR (African American) 97.8; Est GFR (Non-African American) 84.4; Globulin 4.1 gm/dl (2.5-4.0); Potassium 3.6 mmol/L (3.5-5.1)
--- NOTE | 2018-11-16 09:11 | Surgery Progress Note ---
Date of Service November 16, 2018 Assessment & Plan (1) Perforation of sigmoid colon due to diverticulitis: symptoms slightly improved from yesterday wbc still normal vitals ok. febrile overnight but this could be from his +influenza A cont npo/IV antibiotics will continue serial exams. plan to repeat CT tomorrow AM Subjective still having LLQ pain, worse with movement improved from yesterday Physical Exam 2 Vital Signs (Past 24 Hours): Last Vital Signs Temp 37.0 C 11/16/18 07:05 Pulse 96 H 11/16/18 07:05 Resp 16 11/16/18 07:05 BP 124/77 11/16/18 07:05 Pulse Ox 91 11/16/18 07:05 Physical Exam: alert. NAD abdomen: soft. +LLQ tenderness no peritoneal signs
[2018-11-16] MEDS: LEVOTHYROXINE SODIUM IV SCH (09:34)
[2018-11-16] MEDS: PANTOprazole 40 MG in SYRINGE 0 ML IV SCH (09:36)
[2018-11-16] MEDS: ALBUT/IPRATROP 3MG/0.5MG NEB 3 ML VIAL NEB PRN (10:31)
[2018-11-16] MEDS: OSELTAMIVIR PHOSPHATE SUSP 75 MG/12.5 ML UDP PO SCH ×2 (10:46→21:16)
[2018-11-16] MEDS: ACETAMINOPHEN 65 ML IV SCH ×2 (10:48→17:53)
[2018-11-16] MEDS ORDERED: ONDANSETRON INJ 2 MG/ML 2 ML VIAL IV PRN (17:34)
--- NOTE | 2018-11-16 19:31 | Hospitalist Progress Note ---
Date of Service November 16, 2018 Assessment & Plan (1) Perforation of sigmoid colon due to diverticulitis: Present on admission with abdominal pain CT abd/pelvis showed findings consistent with perforated acute sigmoid diverticulitis. Moderate pneumoperitoneum. Mild pericolonic infiltration. Surgery on board recommended conservative management Continue IV abx with Zosyn Case discussed with surgery Continue NPO and ok with ice chips and sip of water Will get a repeat CT abd tomorrow Continue monitor (2) Influenza A: (3) Asthma, moderate persistent: Positive influenza A testing in ED CXR showed no acute finding Continue oral Tamiflu No wheezing on exam, saturating well on room air Continue neb treatment Will consider to add tessalon perles if cough worsening (4) CAD (coronary artery disease): denies any chest pain Continue holding aspirin (for possible surgery if needed) (5) Reflux esophagitis: IV PPI while n.p.o. (6) Hypothyroidism: IV levothyroxine while n.p.o. (7) DVT prophylaxis: SCDs due to ruptured diverticulitis, possible OR CODE STATUS FULL CODE Subjective Pt was seen and examined Lying in bed with no distress Pt said that pain improved Denies any chest pain, palpitation and SOB Physical Exam 2 Vital Signs (Past 24 Hours): Last Vital Signs Temp 36.8 C 11/16/18 19:07 Pulse 83 11/16/18 19:07 Resp 16 11/16/18 19:07 BP 133/62 11/16/18 19:07 Pulse Ox 95 11/16/18 19:07 Physical Exam: General- No acute distress Head- atraumatic Eyes- PERRL, EOMI, ENT- oropharynx clear Neck- supple, no JVD Lungs- clear to auscultation Heart- regular rhythm; no murmur Abdomen- +bowel sounds, +tender, +mild distended Extremities- no calf tenderness Neuro- alert, oriented x 3; PERRL, EOMI; no facial palsy; no dysarthria Skin- warm & dry
[2018-11-17] MEDS: D5W AND NSS 1,000 ML IV SCH ×4 (00:26→15:43)
[2018-11-17] MEDS: HYDROCODONE/HOMATROPINE SYRUP 5MG/1.5MG 5ML UDP PO PRN ×3 (01:20→18:24)
[2018-11-17] MEDS: PIPERACILLIN/TAZOBACTAM 3.375 GM in DEXTROSE 5% 100 ML IV SCH ×3 (02:16→18:25)
[2018-11-17] MEDS: ACETAMINOPHEN 65 ML IV SCH ×3 (02:17→18:25)
--- NOTE | 2018-11-17 06:26 | Surgery Progress Note ---
Date of Service November 17, 2018 Assessment & Plan (1) Perforation of sigmoid colon due to diverticulitis: clinically improving AM labs pending will repeat CT scan to evaluate continue NPO/antibiotics Subjective pt feeling much better this AM. minimal pain. slept all night. per RN did not require any pain meds Physical Exam 2 Vital Signs (Past 24 Hours): Last Vital Signs Temp 36.9 C 11/17/18 03:14 Pulse 76 11/17/18 03:14 Resp 18 11/17/18 03:14 BP 155/87 H 11/17/18 03:14 Pulse Ox 95 11/17/18 03:14 Physical Exam: alert/oriented. NAD abdomen: soft. less distended. +LLQ/supra pubic TTP
[2018-11-17 06:42] LABS: Basophils # (auto) 0.02 K/uL (0-0.2); Basophils % (auto) 0.2 %; Eosinophils # (auto) 0.23 K/uL (0-0.5); Eosinophils % (auto) 2.4 %; Hematocrit (blood only) 39.6 % (42-52); Hemoglobin 13.3 g/dL (14.0-18.0); Immature Granulocytes # (auto) 0.03 K/uL (0.00-0.02); Immature Granulocytes % (auto) 0.3 %; Lymphocytes # (auto) 1.02 K/uL (1.2-3.4); Lymphocytes % (auto) 10.4 %; Mean Corpuscular Hgb Conc 33.6 g/dL (32-36); Mean Corpuscular Volume 97.8 fL (80-100); Mean Platelet Volume 10.1 fL (7.4-10.4); Monocytes # (auto) 0.65 K/uL (0.11-0.59); Monocytes % (auto) 6.6 %; Neutrophils # (auto) 7.83 K/uL (1.4-6.5); Neutrophils % (auto) 80.1 %; Platelet Count 165 K/uL (130-400); RDW Coefficient of Variation 12.7 % (11.5-14.5); RDW Standard Deviation 45.6 fL (36.4-46.3); Red Blood Count 4.05 M/uL (4.7-6.1); White Blood Count 9.78 K/uL (4.8-10.8)
[2018-11-17] MEDS: LEVOTHYROXINE SODIUM IV SCH (09:11)
[2018-11-17] MEDS: PANTOprazole 40 MG in SYRINGE 0 ML IV SCH (09:13)
[2018-11-17] MEDS ORDERED: OPTIRAY 320 125ml IV PRN (09:42)
--- NOTE | 2018-11-17 10:25 | CT Scan Report ---
CT SCAN OF THE ABDOMEN AND PELVIS WITH IV CONTRAST CLINICAL HISTORY: Follow-up diverticulitis. COMPARISON STUDY: Abdominal CT dated 11/15/2018. Chest CT dated 04/26/2011. TECHNIQUE: Following the IV administration of 117 cc of Optiray 320, CT scan of the abdomen and pelv is is performed from the lung bases to the proximal femora. Images are reviewed in the axial, sagitta l, and coronal planes. IV contrast was administered without complication. A dose lowering technique w as utilized adhering to the principles of ALARA. CT DOSE: 768.37 mGy.cm FINDINGS: Lung bases: The heart is top normal in size and without pericardial effusion. The coronary arteries a re densely calcified. There is bibasilar scarring/atelectasis. No airspace consolidation or pleural e ffusion is identified. A formal metered right lower lobe nodule is seen on image #2. A 9 mm pleural-b ased nodule at the left lung base containing a calcification is seen on image #84. These have likely been present dating back to 2010. There is a small hiatal hernia. Liver: The contrast-enhanced liver is normal in size, contour, and attenuation. There is no intrahepa tic biliary ductal dilatation. The hepatic veins and portal veins are patent. Gallbladder: Mildly distended and grossly unremarkable. Spleen: Normal in size and attenuation. Pancreas: Unremarkable. Adrenal glands: Unremarkable. Kidneys: The contrast enhanced kidneys are normal in size and without hydronephrosis. The kidneys enh ance symmetrically. Abdominal vasculature: The abdominal aorta is normal in course and caliber noting moderate atheroscle rotic calcification. Bowel: There is advanced sigmoid diverticulosis, with mild/moderate diverticulosis throughout the rem aining colon. There is inflammatory stranding seen along the superior margin of the sigmoid colon on image #315. A thin tract extends superiorly from the sigmoid colon which may represent developing fis shannan. There is a markedly thick-walled and inflamed appearing loop of adjacent small bowel seen more superiorly on image #299. A thin fluid collection is identified along the anterior margin of this sma ll bowel loop on image #297 and measures 0.9 x 3.0 cm. This collection appears contiguous with the th in tract seen extending from the sigmoid colon. The fluid collection is new from 11/15/2018 and likely represents a developing abscess. No bowel obstruction is seen. The appendix is well-visualized and n ormal. Peritoneum: Numerous small foci of intraperitoneal free air are again noted. This has modestly decrea sed from 11/15/2018. Lymphadenopathy: Prominent subcentimeter retroperitoneal lymph nodes may be a reactive basis. Pelvic viscera: The prostate gland is mildly enlarged and heterogeneous. The bladder is distended and grossly unremarkable. There are bilateral fat-containing inguinal hernias. Skeletal structures: There is mild lumbosacral spondylosis. No lytic or blastic lesions are seen. IMPRESSION: 1. There are numerous small foci of intraperitoneal free air. This has modestly decreased from 11/15/19 19. 2. There is advanced sigmoid diverticulosis. Mild inflammatory change is seen along the superior leslie in of the proximal sigmoid colon and likely represents acute diverticulitis. 3. There is a thick-walled and inflamed loop of small bowel seen superior to the sigmoid colon, likel y related to inflammation from perforated sigmoid diverticulitis. 4. There is a small fluid collection identified along the anterior margin of the inflamed small bowel loop consistent with a developing abscess. This measures 0.9 x 3.0 cm. A thin tract extends from the sigmoid colon to this collection, likely representing a developing fistula. 5. Additional findings as above. Electronically signed by: Nirav Estrada M.D. 11/17/2018 10:24 AM
[2018-11-17] MEDS: OSELTAMIVIR PHOSPHATE SUSP 75 MG/12.5 ML UDP PO SCH ×2 (10:32→21:17)
--- NOTE | 2018-11-17 13:03 | Hospitalist Progress Note ---
Date of Service November 17, 2018 Assessment & Plan (1) Perforation of sigmoid colon due to diverticulitis: Present on admission with abdominal pain CT abd/pelvis on admission showed findings consistent with perforated acute sigmoid diverticulitis with moderate pneumoperitoneum. Mild pericolonic infiltration. Repeat CT chest today showed numerous small foci of intraperitoneal free air. This has modestly decreased from 11/15/2018. Thick-walled and inflamed loop of small bowel seen superior to the sigmoid colon , likely related to inflammation from perforated sigmoid diverticulitis and small fluid collection identified along the anterior margin of the inflamed small bowel loop consistent with a developing abscess. Surgery on board recommended conservative management CT finding discussed with Surgery recommneded to keep NPO Continue IV abx with Zosyn Continue NPO and ok with ice chips and sip of water Pt is afebrile with stable VS and no leukocytosis Clinically improves (2) Influenza A: (3) Asthma, moderate persistent: Positive influenza A testing in ED CXR showed no acute finding Continue oral Tamiflu No wheezing on exam, saturating well on room air Continue neb treatment Clinically improves (4) CAD (coronary artery disease): denies any chest pain Continue holding aspirin (for possible surgery if needed) (5) Reflux esophagitis: IV PPI while n.p.o. Will change to oral in am (6) Hypothyroidism: IV levothyroxine while n.p.o. Will change to oral in am (7) DVT prophylaxis: SCDs due to ruptured diverticulitis, possible OR CODE STATUS FULL CODE Disposition Will consider to transfer out of Telemetry if remains stable Subjective Pt was seen and examined Lying in bed with no distress with at bedside Pt said that he feels fine He said that he feels a little discomfort in his abdomen after drinking the contrast for the CT scan He said that his last BM was on Sunday He said that he was feeling nauseated early Denies any fever, chest pain, palpitation and SOB Physical Exam 2 Vital Signs (Past 24 Hours): Last Vital Signs Temp 36.6 C 11/17/18 11:50 Pulse 67 11/17/18 11:50 Resp 12 11/17/18 11:50 BP 101/58 L 11/17/18 11:50 Pulse Ox 96 11/17/18 11:50 Physical Exam: General- No acute distress Head- atraumatic Eyes- PERRL, EOMI, ENT- oropharynx clear Neck- supple, no JVD Lungs- clear to auscultation Heart- regular rhythm; no murmur Abdomen- +bowel sounds, +tender, +mild distended Extremities- no calf tenderness Neuro- alert, oriented x 3; PERRL, EOMI; no facial palsy; no dysarthria Skin- warm & dry
[2018-11-18] MEDS: HYDROCODONE/HOMATROPINE SYRUP 5MG/1.5MG 5ML UDP PO PRN ×2 (00:49→09:39)
[2018-11-18] MEDS: D5W AND NSS 1,000 ML IV SCH ×3 (00:58→17:36)
[2018-11-18] MEDS: PIPERACILLIN/TAZOBACTAM 3.375 GM in DEXTROSE 5% 100 ML IV SCH ×3 (02:17→18:15)
[2018-11-18] MEDS: ACETAMINOPHEN 65 ML IV SCH ×3 (02:17→17:42)
[2018-11-18 08:05] LABS: Basophils # (auto) 0.01 K/uL (0-0.2); Basophils % (auto) 0.1 %; Eosinophils # (auto) 0.28 K/uL (0-0.5); Eosinophils % (auto) 3.1 %; Hemoglobin 12.7 g/dL (14.0-18.0); Immature Granulocytes # (auto) 0.06 K/uL (0.00-0.02); Immature Granulocytes % (auto) 0.7 %; Lymphocytes % (auto) 10.1 %; Mean Corpuscular Volume 96.7 fL (80-100); Mean Platelet Volume 10.2 fL (7.4-10.4); Monocytes # (auto) 0.75 K/uL (0.11-0.59); Monocytes % (auto) 8.4 %; Neutrophils % (auto) 77.6 %; Platelet Count 195 K/uL (130-400); RDW Coefficient of Variation 12.5 % (11.5-14.5); RDW Standard Deviation 44.5 fL (36.4-46.3); Red Blood Count 3.93 M/uL (4.7-6.1)
[2018-11-18 08:23] LABS: Mean Corpuscular Hgb Conc 33.4 g/dL (32-36)
[2018-11-18] MEDS: PANTOprazole 40 MG in SYRINGE 0 ML IV SCH (08:24)
[2018-11-18] MEDS: OSELTAMIVIR PHOSPHATE SUSP 75 MG/12.5 ML UDP PO SCH ×2 (08:25→20:27)
[2018-11-18 08:26] LABS: BUN Creatinine Ratio 6.6 (10-20); Calcium 8.4 mg/dl (8.5-10.1); Creatinine Clr Calc Pharmacy 89.7 ml/min; Est GFR (African American) 93.1; Est GFR (Non-African American) 80.3; Potassium 3.7 mmol/L (3.5-5.1)
--- NOTE | 2018-11-18 08:31 | Surgery Progress Note ---
Date of Service November 18, 2018 Assessment & Plan (1) Perforation of sigmoid colon due to diverticulitis: Improving on IV zosyn, WBC 8.9 start on clear liquids seen with Dr. Wright Subjective multiple BMs, less pain, still some tenderness Physical Exam 2 Vital Signs (Past 24 Hours): Last Vital Signs Temp 37.1 C 11/18/18 06:58 Pulse 71 11/18/18 06:58 Resp 18 11/18/18 06:58 BP 136/77 11/18/18 06:58 Pulse Ox 98 11/18/18 06:58 Gastrointestinal (Abdomen): Inspection/Auscultation: + abdomen distended ( slightly) Percussion/Palpation: + abdomen tender (mild)
--- NOTE | 2018-11-18 09:01 | Surgery Progress Note ---
Date of Service November 18, 2018 Assessment & Plan (1) Perforation of sigmoid colon due to diverticulitis: continues to improve clinically wbc down to 8,000 will start clears today goal of d/c by sunday if he continues to improve. Subjective continues to slowly improve. hungry. +bm's. pain improving. Physical Exam 2 Vital Signs (Past 24 Hours): Last Vital Signs Temp 37.1 C 11/18/18 06:58 Pulse 71 11/18/18 06:58 Resp 18 11/18/18 06:58 BP 136/77 11/18/18 06:58 Pulse Ox 98 11/18/18 06:58 Physical Exam: alert/oriented. NAD. +ttp in LLQ. no peritoneal signs.
[2018-11-18] MEDS: LEVOTHYROXINE SODIUM IV SCH (09:29)
[2018-11-18] MEDS: ALBUT/IPRATROP 3MG/0.5MG NEB 3 ML VIAL NEB PRN (10:57)
[2018-11-18] MEDS: guaiFENesin 200 MG TAB PO PRN ×2 (12:08→18:18)
--- NOTE | 2018-11-18 12:26 | Hospitalist Progress Note ---
Date of Service November 18, 2018 Assessment & Plan (1) Perforation of sigmoid colon due to diverticulitis: Present on admission with abdominal pain CT abd/pelvis on admission showed findings consistent with perforated acute sigmoid diverticulitis with moderate pneumoperitoneum. Mild pericolonic infiltration. Repeat CT chest today showed numerous small foci of intraperitoneal free air. This has modestly decreased from 11/15/2018. Thick-walled and inflamed loop of small bowel seen superior to the sigmoid colon , likely related to inflammation from perforated sigmoid diverticulitis and small fluid collection identified along the anterior margin of the inflamed small bowel loop consistent with a developing abscess. Surgery on board recommended conservative management CT finding discussed with Surgery recommended to keep NPO Continue IV abx with Zosyn Continue NPO and ok with ice chips and sip of water Pt is afebrile with stable VS and no leukocytosis 11/18 Clinically improves Tolerated clear liquid diet Continue IV zosyn Continue monitor (2) Influenza A: (3) Asthma, moderate persistent: Positive influenza A testing in ED CXR showed no acute finding Continue oral Tamiflu No wheezing on exam, saturating well on room air Continue neb treatment guaifenesin added Clinically improves (4) CAD (coronary artery disease): denies any chest pain Continue holding aspirin (for possible surgery if needed) (5) Reflux esophagitis: IV PPI while n.p.o. Changed pantoprazole to oral (6) Hypothyroidism: IV levothyroxine while n.p.o. Changed Levothryroxine to oral (7) DVT prophylaxis: SCDs due to ruptured diverticulitis, possible OR CODE STATUS FULL CODE Disposition Ok to transfer out of Telemetry Subjective Pt was seen and examined Lying in bed with no distress Pt said that whenever he coughs, his L side abdomen feel tender He said that he tolerates clear liquid diet Denies any chest pain, palpitation, dizziness and SOB Physical Exam 2 Vital Signs (Past 24 Hours): Last Vital Signs Temp 36.8 C 11/18/18 11:33 Pulse 86 11/18/18 11:33 Resp 18 11/18/18 11:33 BP 155/74 H 11/18/18 11:33 Pulse Ox 97 11/18/18 10:59 Physical Exam: General- No acute distress Head- atraumatic Eyes- PERRL, EOMI, ENT- oropharynx clear Neck- supple, no JVD Lungs- clear to auscultation Heart- regular rhythm; no murmur Abdomen- +bowel sounds, +tender, +mild distended Extremities- no calf tenderness Neuro- alert, oriented x 3; PERRL, EOMI; no facial palsy; no dysarthria Skin- warm & dry
[2018-11-18] MEDS ORDERED: COUGH DROP (SUGAR FREE) LOZ 24 LOZ/1 BOX BUCCAL ONE (22:24)
[2018-11-19] MEDS: ALBUT/IPRATROP 3MG/0.5MG NEB 3 ML VIAL NEB PRN ×2 (00:13→06:05)
[2018-11-19] MEDS: D5W AND NSS 1,000 ML IV SCH ×2 (01:54→10:26)
[2018-11-19] MEDS: ACETAMINOPHEN 65 ML IV SCH ×3 (01:55→17:53)
[2018-11-19] MEDS: PIPERACILLIN/TAZOBACTAM 3.375 GM in DEXTROSE 5% 100 ML IV SCH ×3 (02:00→18:46)
[2018-11-19] MEDS: LEVOTHYROXINE SODIUM 125 MCG TABLET PO SCH (05:48)
[2018-11-19 06:37] LABS: Basophils # (auto) 0.03 K/uL (0-0.2); Basophils % (auto) 0.4 %; Eosinophils # (auto) 0.22 K/uL (0-0.5); Eosinophils % (auto) 2.8 %; Hematocrit (blood only) 40.8 % (42-52); Hemoglobin 13.7 g/dL (14.0-18.0); Immature Granulocytes # (auto) 0.09 K/uL (0.00-0.02); Immature Granulocytes % (auto) 1.2 %; Lymphocytes # (auto) 1.69 K/uL (1.2-3.4); Lymphocytes % (auto) 21.9 %; Mean Corpuscular Hgb Conc 33.6 g/dL (32-36); Mean Corpuscular Volume 96.7 fL (80-100); Mean Platelet Volume 10.3 fL (7.4-10.4); Monocytes % (auto) 7.8 %; Neutrophils % (auto) 65.9 %; Platelet Count 251 K/uL (130-400); RDW Coefficient of Variation 12.7 % (11.5-14.5); RDW Standard Deviation 44.5 fL (36.4-46.3); Red Blood Count 4.22 M/uL (4.7-6.1); White Blood Count 7.73 K/uL (4.8-10.8)
[2018-11-19 07:05] LABS: BUN Creatinine Ratio 3.1 (10-20); Calcium 8.7 mg/dl (8.5-10.1); Creatinine Clr Calc Pharmacy 85.8 ml/min; Est GFR (African American) 87.7; Est GFR (Non-African American) 75.7
[2018-11-19] MEDS ORDERED: POTASSIUM CHLORIDE 20 MEQ TABCR PO STA (08:34)
[2018-11-19] MEDS: HYDROCODONE/HOMATROPINE SYRUP 5MG/1.5MG 5ML UDP PO PRN ×2 (08:49→19:24)
[2018-11-19] MEDS: guaiFENesin 200 MG TAB PO PRN ×2 (08:49→19:24)
[2018-11-19] MEDS: OSELTAMIVIR PHOSPHATE SUSP 75 MG/12.5 ML UDP PO SCH ×2 (08:49→20:09)
[2018-11-19] MEDS: POTASSIUM CHLORIDE / WTR 10 MEQ/100 ML PLCT IV SCH ×2 (08:50→09:49)
[2018-11-19] MEDS: ROSUVASTATIN CALCIUM 20 MG TAB PO SCH (08:50)
[2018-11-19] MEDS: PANTOprazole 40 MG TAB PO SCH (08:50)
--- NOTE | 2018-11-19 09:46 | Surgery Progress Note ---
Date of Service November 19, 2018 Assessment & Plan (1) Perforation of sigmoid colon due to diverticulitis: improving WBC 7, HR & temp normal begin full liquids K+ supplemented po and IV, will decrease IVF and add 20 meq K as above. continues to improve daily abdomen: soft. mild LLQ tenderness--improved try full liquids today possible d/c home tomorrow Subjective continues to have loose BM, pain improved, tolerating liquids, cc cough Physical Exam 2 Vital Signs (Past 24 Hours): Last Vital Signs Temp 37.4 C 11/19/18 07:36 Pulse 80 11/19/18 07:36 Resp 18 11/19/18 07:36 BP 119/62 11/19/18 07:36 Pulse Ox 93 11/19/18 07:36 Gastrointestinal (Abdomen): Inspection/Auscultation: abdomen not distended Percussion/Palpation: + abdomen tender (suprapubic) and abdomen soft
[2018-11-19] MEDS: NSS + 20MEQ KCL 20 MEQ/1,000 ML BAG IV SCH ×2 (10:07→23:28)
--- NOTE | 2018-11-19 18:38 | Hospitalist Progress Note ---
Date of Service November 19, 2018 Assessment & Plan (1) Perforation of sigmoid colon due to diverticulitis: Present on admission with abdominal pain CT abd/pelvis on admission showed findings consistent with perforated acute sigmoid diverticulitis with moderate pneumoperitoneum. Mild pericolonic infiltration. Repeat CT chest today showed numerous small foci of intraperitoneal free air. This has modestly decreased from 11/15/2018. Thick-walled and inflamed loop of small bowel seen superior to the sigmoid colon , likely related to inflammation from perforated sigmoid diverticulitis and small fluid collection identified along the anterior margin of the inflamed small bowel loop consistent with a developing abscess. Surgery on board recommended conservative management CT finding discussed with Surgery recommended to keep NPO Continue IV abx with Zosyn Continue NPO and ok with ice chips and sip of water Pt is afebrile with stable VS and no leukocytosis 11/19 Clinically improves Tolerated Full liquid diet Continue IV zosyn Continue monitor Advanced diet as tolerated (2) Influenza A: (3) Asthma, moderate persistent: Positive influenza A testing in ED CXR showed no acute finding Continue oral Tamiflu No wheezing on exam, saturating well on room air Continue neb treatment guaifenesin added Clinically improves (4) CAD (coronary artery disease): denies any chest pain Continue holding aspirin (for possible surgery if needed) (5) Reflux esophagitis: Continue pantoprazole to oral (6) Hypothyroidism: Continue Levothryroxine to oral (7) DVT prophylaxis: SCDs due to ruptured diverticulitis, possible OR CODE STATUS FULL CODE Disposition possible d/c tomorrow Subjective Pt was seen and examined Lying in bed with no distress Pt said that he tolerated full liquid diet denies any fever, palpitation and SOB Physical Exam 2 Vital Signs (Past 24 Hours): Last Vital Signs Temp 36.6 C 11/19/18 16:20 Pulse 78 11/19/18 16:20 Resp 18 11/19/18 16:20 BP 128/78 11/19/18 16:20 Pulse Ox 95 11/19/18 16:20 Physical Exam: General- No acute distress Head- atraumatic Eyes- PERRL, EOMI, ENT- oropharynx clear Neck- supple, no JVD Lungs- clear to auscultation Heart- regular rhythm; no murmur Abdomen- +bowel sounds, +mild tender, +mild distended Extremities- no calf tenderness Neuro- alert, oriented x 3; PERRL, EOMI; no facial palsy; no dysarthria Skin- warm & dry
[2018-11-20] MEDS: ACETAMINOPHEN 65 ML IV SCH ×2 (02:25→09:41)
[2018-11-20] MEDS: guaiFENesin 200 MG TAB PO PRN ×2 (02:31→08:37)
[2018-11-20] MEDS: HYDROCODONE/HOMATROPINE SYRUP 5MG/1.5MG 5ML UDP PO PRN ×2 (02:31→08:37)
[2018-11-20] MEDS: PIPERACILLIN/TAZOBACTAM 3.375 GM in DEXTROSE 5% 100 ML IV SCH ×2 (02:50→09:40)
[2018-11-20] MEDS: LEVOTHYROXINE SODIUM 125 MCG TABLET PO SCH (06:25)
--- NOTE | 2018-11-20 07:26 | Surgery Progress Note ---
Date of Service November 20, 2018 Assessment & Plan (1) Perforation of sigmoid colon due to diverticulitis: advance to low fiber labs pending as above. pt seen. feels "great" bowels moving obinna regular diet ok for d/c on oral antibiotics low residue diet handout given f/u in office Subjective tolerating diet, cough improved Physical Exam 2 Vital Signs (Past 24 Hours): Last Vital Signs Temp 36.7 C 11/19/18 23:23 Pulse 69 11/19/18 23:23 Resp 18 11/19/18 23:23 BP 115/69 11/19/18 23:23 Pulse Ox 96 11/19/18 23:23 Gastrointestinal (Abdomen): Inspection/Auscultation: abdomen not distended Percussion/Palpation: + abdomen tender (mild)
[2018-11-20 08:35] LABS: Basophils # (auto) 0.03 K/uL (0-0.2); Basophils % (auto) 0.4 %; Eosinophils # (auto) 0.26 K/uL (0-0.5); Eosinophils % (auto) 3.5 %; Hematocrit (blood only) 39.4 % (42-52); Hemoglobin 13.6 g/dL (14.0-18.0); Immature Granulocytes # (auto) 0.11 K/uL (0.00-0.02); Immature Granulocytes % (auto) 1.5 %; Lymphocytes # (auto) 1.23 K/uL (1.2-3.4); Lymphocytes % (auto) 16.6 %; Mean Corpuscular Hgb Conc 34.5 g/dL (32-36); Mean Corpuscular Volume 96.8 fL (80-100); Mean Platelet Volume 10.3 fL (7.4-10.4); Monocytes # (auto) 0.63 K/uL (0.11-0.59); Monocytes % (auto) 8.5 %; Neutrophils # (auto) 5.17 K/uL (1.4-6.5); Neutrophils % (auto) 69.5 %; Platelet Count 254 K/uL (130-400); RDW Coefficient of Variation 12.7 % (11.5-14.5); RDW Standard Deviation 44.8 fL (36.4-46.3); Red Blood Count 4.07 M/uL (4.7-6.1); White Blood Count 7.43 K/uL (4.8-10.8)
[2018-11-20 09:08] LABS: BUN Creatinine Ratio 4.2 (10-20); Calcium 8.8 mg/dl (8.5-10.1); Creatinine Clr Calc Pharmacy 96.9 ml/min; Est GFR (African American) 101.6; Est GFR (Non-African American) 87.7; Potassium 3.9 mmol/L (3.5-5.1)
[2018-11-20] MEDS: OSELTAMIVIR PHOSPHATE SUSP 75 MG/12.5 ML UDP PO SCH (09:40)
[2018-11-20] MEDS: ROSUVASTATIN CALCIUM 20 MG TAB PO SCH (09:40)
[2018-11-20] MEDS: PANTOprazole 40 MG TAB PO SCH (09:40)
--- NOTE | 2018-11-20 17:40 | Hospitalist Progress Note ---
Date of Service November 20, 2018 Assessment & Plan (1) Perforation of sigmoid colon due to diverticulitis: clinically improved with conservative management Present on admission with abdominal pain CT abd/pelvis on admission showed findings consistent with perforated acute sigmoid diverticulitis with moderate pneumoperitoneum. Mild pericolonic infiltration. Surgery on board recommended conservative management Pt is afebrile with stable VS and no leukocytosis pt was treated with IV abx with Zosyn /bowel rest Clinically improves diet advanced to low residue today by surgery team Abx changed to PO Augmentin for 7 days stable to be discharged home as able to tolerate solid follow up with surgery in 1 week in clinic (2) Influenza A: Positive influenza A testing in ED CXR showed no acute finding Continue oral Tamiflu completed 5 days of Tamiflu (3) Asthma, moderate persistent: No wheezing on exam, saturating well on room air Continue neb treatment guaifenesin added Clinically improves (4) CAD (coronary artery disease): denies any chest pain (5) Reflux esophagitis: Continue pantoprazole to oral (6) Hypothyroidism: Continue Levothryroxine to oral (7) DVT prophylaxis: SCDs due to ruptured diverticulitis, possible OR CODE STATUS FULL CODE Disposition stable to be discharged home Subjective sitting up on chair tolerated solid diet well no nausea normal bowel movement has mild non productive cough no SOB, no fever or chills Physical Exam 2 Vital Signs (Past 24 Hours): Last Vital Signs Temp 36.6 C 11/20/18 15:31 Pulse 80 11/20/18 15:31 Resp 17 11/20/18 15:31 BP 135/86 11/20/18 15:31 Pulse Ox 97 11/20/18 15:31 Physical Exam: GENERAL: No sign of distress, HEENT: Sclera nonicteric, pink-purple bilateral equal reactive to light extraocular muscle intact Normal oral mucosa, neck: No JVD, no thyromegaly, trachea midline Lungs: Clear to auscultate, no wheeze or rales Cardiovascular: Regular S1 and S2, no murmur or gallop, no JVD, no lower extremity edema Abdomen: Soft, minimum tenderness on left lower quadrant, no rebound , bowel sound active Extremities: No rash or deformity, normal joint, Neuro: No focal neurological deficit, no dysarthria, no facial droop Psych: Alert awake oriented x3: Euthymic Skin: No rash LYMPH NODES: No cervical lymphadenopathy
[2018-11-20] MEDS ORDERED: AMOXICILLIN/CLAVULANATE 875 MG TAB PO ONE (18:30)
--- NOTE | 2018-11-21 14:29 | Discharge Summary ---
Date of Service November 21, 2018 Admission HPI Per Admitting Provider 63-year-old male who presents to the ED with abdominal pain. Patient reports he developed cold-like symptoms on 11/11. Patient was seen at [facility] on 11/13 and given prescriptions for doxycycline and prednisone. Patient reports he has been running intermittent fevers as high as 102. He reports a harsh, dry , nonproductive cough. This morning, he developed lower abdominal pain. It was progressively getting worse he presented to the ED for further evaluation. Patient reports a normal bowel movement yesterday morning. No bright red bleeding per rectum or dark tarry stools. Denies nausea or vomiting. No lightheadedness, dizziness, diaphoresis, syncopal events. He denies urinary symptoms. In the ED, CT ABD/pelvis is showing acute perforated sigmoid diverticulitis. Patient remained hemodynamically stable while in the ED. Labs are unremarkable as well. Patient was evaluated by Dr. Wright (general surgery) at the bedside in the ED. Patient was given IVF, IV Zosyn, IV Zofran, IV morphine, IV Toradol. Principal Diagnosis acute diverticulitis /Influenza A Discharge Exam Constitutional WD/WN, vitals as above + ill appearing Eyes PERRL, conjunctivae normal, anicteric sclerae ENMT external ear and nose normal, oropharynx normal Respiratory normal respiratory effort, lungs clear to auscultation + cough (Harsh, dry) Cardiovascular Rate/Rhythm: regular rate and regular rhythm Vessels: normal peripheral pulses Extremities: no edema Gastrointestinal (Abdomen) Inspection/Auscultation: normal bowel sounds; abdomen not distended Percussion/Palpation: + abdomen tender (mild) and abdomen soft; no hepatosplenomegaly Musculoskeletal no cyanosis or clubbing, extremities motor strength 5/5 Skin no rashes, warm and dry Neurologic PERRL, EOMI, accommodation nl, no face palsy, no dysarthria Psychiatric A+Ox3, euthymic affect Discharge Data Allergies Allergy/AdvReac Type Severity Reaction Status Date / Time No Known Allergies Allergy Unknown Verified 11/15/18 11:50 Consultations 11/15/18 12:34 ED Decision to Admit Stat 11/15/18 14:27 Consult General Surgery Routine Ordered Studies 11/15/18 10:46 CT abd pelvis IV con only Stat 11/17/18 06:22 CT abd pelvis oral and IV con Urgent Hospital Course (1) Perforation of sigmoid colon due to diverticulitis: clinically improved with conservative management Present on admission with abdominal pain CT abd/pelvis on admission showed findings consistent with perforated acute sigmoid diverticulitis with moderate pneumoperitoneum. Mild pericolonic infiltration. Surgery on board recommended conservative management Pt is afebrile with stable VS and no leukocytosis pt was treated with IV abx with Zosyn /bowel rest Clinically improves diet advanced to low residue today by surgery team Abx changed to PO Augmentin for 7 days stable to be discharged home as able to tolerate solid follow up with surgery in 1 week in clinic (2) Influenza A: Positive influenza A testing in ED CXR showed no acute finding Continue oral Tamiflu completed 5 days of Tamiflu (3) Asthma, moderate persistent: No wheezing on exam, saturating well on room air Continue neb treatment guaifenesin added Clinically improves (4) CAD (coronary artery disease): denies any chest pain (5) Reflux esophagitis: Continue pantoprazole to oral (6) Hypothyroidism: Continue Levothryroxine to oral (7) DVT prophylaxis: SCDs due to ruptured diverticulitis, possible OR CODE STATUS FULL CODE Disposition stable to be discharged home Total Time Total Time Spent Total Time Spent (In Minutes): 35 MINS Total Time Includes: Examination of the Patient, Discharge Planning and Medication Reconciliation Discharge Plan Discharge Items Patient Disposition: Home - Self-Care Reason For Visit: COUGH,FEVER,SEVERE ABD PAIN Discharge Diagnosis: diverticulitis Influenza A Discharge Goals: Decrease discomfort Activity: Resume your previous activity Non-emergency contact: Surgeon Call non-emergency contact if: you have any medication questions, your pain is not controlled, you have a fever and your temperature is above 101.5 Follow-up/Referrals: Travis Wright, [Surgeon] - (Call to make an appt ) Jonas Larry MD [Staff Physician] - 11/22/18 12:35 pm Diet: Low Fiber Addtl Provider Instructions: FOLLOW UP WITH FAMILY PHYSICIAN IN A WEEK CONTINUE LOW RESIDUE DIET FOLLOW UP WITH SURGERY INSTRUCTED YOU HAVE COMPLETED 5 DAYS OF TAMIFLU FOR INFLUENZA A YOU CAN STILL BE CONTAGIOUS FOR NEXT 5-7 DAYS WEAR A MASK OR COVER YOUR MOUTH FOR COUGH USE HAND SANITIZERS EVERY TIME YOU SNEEZE OR COUGH TO KILL THE VIRUS IN CONTACT WITH HANDS PLEASE WASH YOUR HANDS WITH SOAP AND WATER BEFORE EATING TO PREVENT SPREAD OF VIRUS Prescriptions: New amoxicillin-pot clavulanate [Augmentin] 875-125 mg tablet 1 tab PO BID Qty: 14 RF: 0 promethazine-codeine 6.25-10 mg/5 mL syrup 5 ml PO Q6H Qty: 118 RF: 0 Continue aspirin 81 mg Tablet,Delayed Release (Dr/Ec) 81 mg PO QAM RF: 0 albuterol sulfate [Ventolin HFA] 90 mcg/actuation Hfa Aerosol Inhaler 2 puff INHALATION Q6H PRN (Reason: Shortness Of Breath Or Wheezing) RF: 0 bohwwhkgjnvya-xrmqapwunzhdq-KE [Tylenol Cold Head Congest Sevr] 5-325-200 mg Tablet 2 tab PO Q6H PRN (Reason: Cold Sores) RF: 0 fluticasone furoate 200 mcg/actuation blister with device 1 dose Inhalation QAM RF: 0 prednisone 10 mg Tablets,Dose Pack PO UD RF: 0 ezetimibe [Zetia] 10 mg Tablet 10 mg PO QAM RF: 0 coenzyme Q10 [CoQ-10] 100 mg Capsule 300 mg PO QAM RF: 0 rosuvastatin [Crestor] 20 mg Tablet 20 mg PO QAM RF: 0 omega 5-zwf-lhr-fish oil [Fish Oil] 1,000 mg (120 mg-180 mg) Capsule 3 cap PO QAM RF: 0 Tumeric 2 cap PO QAM RF: 0 ascorbic acid (vitamin C) [Vitamin C] 100 mg Tablet 100 mg PO DAILY RF: 0 levothyroxine 125 mcg Tablet 125 mcg PO DAILY RF: 0 esomeprazole magnesium 20 mg Capsule,Delayed Release(Dr/Ec) 20 mg PO DAILY RF: 0 krill oil 500 mg Capsule 500 mg PO DAILY RF: 0 Discontinued ibuprofen 200 mg Tablet 800 mg PO QID PRN (Reason: Pain) RF: 0 doxycycline hyclate 100 mg Capsule 100 mg PO BID RF: 0 Visit Report Forms: [facility], Smoking Cessation Stand-Alone Forms: Medication Instructions, [facility] Box Score Games, Opioid Pain Management Discharge Orders: Discharge Order (Routine); Ordered 11/20/18 Ordered By: Juana Chandler Admission Data Admit Date/Time: 11/15/18 13:16 Attending Provider: Juana Chandler Admit Provider: Mandy Walters Primary Care Provider: PCP,NO Other Providers: Travis Wright Service: Medical Other Interventions: Discharge Summary Assessment (RN) Last Done: 11/20/18 18:33 DC Date/Time DO NOT enter until pt leaves facility: 11/20/18 19:09
== END 2018-11-20 19:09 | disposition home or self-care (01) | DRG 392 ==
LOC: ED 10:23 → SUATTDRO 13:16 → 2E 13:16 → 3N 11-18 11:36
DX: K21.0 Gastro-esophageal reflux disease with esophagitis; R91.1 Solitary pulmonary nodule; J45.909 Unspecified asthma, uncomplicated; Z82.49 Family history of ischemic heart disease and other diseases of the circulatory system; J11.1 Influenza due to unidentified influenza virus with other respiratory manifestations; Z80.1 Family history of malignant neoplasm of trachea, bronchus and lung; E03.9 Hypothyroidism, unspecified; K57.20 Diverticulitis of large intestine with perforation and abscess without bleeding; E78.5 Hyperlipidemia, unspecified; I25.10 Atherosclerotic heart disease of native coronary artery without angina pectoris

== ENCOUNTER 2019-03-05 05:32 | Inpatient (IN) ==
--- NOTE | 2019-02-18 15:00 | PAT Medication Instructions ---
Medication Instructions Date of Service February 18, 2019 Home Medications Tumeric 2 cap PO QAM Vitamin C 1,000 mg PO QAM albuterol sulfate [Ventolin HFA] 2 puff INHALATION Q6H PRN aspirin 81 mg PO QAM coenzyme Q10 [CoQ-10] 300 mg PO QAM esomeprazole magnesium 20 mg PO QAM ezetimibe [Zetia] 10 mg PO QAM krill oil 500 mg PO QAM levothyroxine 125 mcg PO QAM omega 1-ajh-ntc-fish oil [Fish Oil] 3 cap PO QAM rosuvastatin [Crestor] 20 mg PO QAM fluticasone furoate [Arnuity 1 dose INHALATION QAM ASK your prescriber and surgeon aspirin 81 mg PO QAM STOP taking 2 weeks before surgery (or as soon as possible if surgery is within 2 weeks) Tumeric 2 cap PO QAM coenzyme Q10 [CoQ-10] 300 mg PO QAM krill oil 500 mg PO QAM omega 0-zzu-ufq-fish oil [Fish Oil] 3 cap PO QAM DO NOT take the morning of surgery Vitamin C 1,000 mg PO QAM Take morning of surgery With a small sip of water, OTHERWISE NOTHING TO EAT OR DRINK AFTER MIDNIGHT: albuterol sulfate [Ventolin HFA] 2 puff INHALATION Q6H PRN (use if needed; please bring with you to hospital day of surgery if possible) esomeprazole magnesium 20 mg PO QAM ezetimibe [Zetia] 10 mg PO QAM levothyroxine 125 mcg PO QAM rosuvastatin [Crestor] 20 mg PO QAM fluticasone furoate [Arnuity 1 dose INHALATION QAM Take evening before surgery albuterol sulfate [Ventolin HFA] 2 puff INHALATION Q6H PRN (if needed) Other Notes If you have any questions please call us at [phone] or [phone] or [phone] or [phone]
--- NOTE | 2019-02-19 09:33 | Anesthesiology Consultation ---
Date of Service February 19, 2019 Assessment & Plan (1) Encounter for pre-operative examination: - Cardio: 09/12/18: s/p cardiac cath 04/2018 which showed multivessel non- obstructive CAD (cath done 2/2 chest pain with minimal exertion and hx of unreliable stress testing in the past per cardio). "Very favorable" cardiac cath findings. "At present, he is having no anginal symptom at and BP and HR are well controlled." F/U one year recommended. - Pulmonary: 03/03/19: "Per the ARISCAT perioperative pulmonary risk calculator, the patient is at low risk for perioperative pulmonary complications." See pulmonary note for perioperative recommendations (surgeon aware). Chart Review Chart Review: Acceptable Risk for Surgery and Patient seen in Pre Admission Testing Teaching & Discussion Pre-Anesthesia Teaching/Discussion Notes: Instructed NPO after midnight before surgery,except medications with 15 cc of water. Medication instructions provided according to the PAT guidelines. History Surgery Operation Date: 03/05/19 07:15 Proposed Procedures p Laparoscopic Assisted Colon Resection - Travis Wright, Height/Weight Height: 5 ft 10 in Weight: 97.1 kg Allergies Allergy/AdvReac Type Severity Reaction Status Date / Time adhesive tape Allergy Unknown RED RASH Verified 03/04/19 08:14 Medications Home Medications Medication Instructions Recorded Confirmed Last Taken Tumeric 2 cap PO QAM 11/15/18 02/13/19 11/14/18 Vitamin C 1,000 mg PO QAM 11/15/18 02/13/19 Unknown albuterol sulfate [Ventolin HFA] 2 puff INHALATION Q6H PRN 11/15/18 02/13/19 11/15/18 00:00 aspirin 81 mg PO QAM 11/15/18 02/13/19 11/14/18 coenzyme Q10 [CoQ-10] 300 mg PO QAM 11/15/18 02/13/19 11/14/18 esomeprazole magnesium 20 mg PO QAM 11/15/18 02/13/19 Unknown ezetimibe [Zetia] 10 mg PO QAM 11/15/18 02/13/19 11/14/18 krill oil 500 mg PO QAM 11/15/18 02/13/19 Unknown levothyroxine 125 mcg PO QAM 11/15/18 02/13/19 Unknown omega 7-xzf-nhl-fish oil [Fish Oil] 3 cap PO QAM 11/15/18 02/13/19 11/14/18 rosuvastatin [Crestor] 20 mg PO QAM 11/15/18 02/13/19 11/14/18 fluticasone furoate-vilanterol 1 inh INHALATION DAILY 02/19/19 02/19/19 Unknown [Ann Vasques] Past Medical History Medical History Hypothyroidism CAD (coronary artery disease) NON-OBSTRUCTIVE PER 04/2018 CATH Dyslipidemia Reflux esophagitis Diverticular disease PERFORATION 11/2018 GERD (gastroesophageal reflux disease) CONTROLLED Granulomatous disease Pulmonary nodules Past Family History Family History Father Lung cancer Brother Heart attack, Onset Age: 56 Past Surgical History Surgical History H/O colonoscopy H/O vasectomy H/O repair of left rotator cuff History of surgical removal of ganglion cyst S/P right knee arthroscopy S/P left knee arthroscopy H/O decompression of ulnar nerve B/L History of carpal tunnel release R/L History of lung surgery Thoracoscopy with wedge resection, R VATs= 02/10/19= Grade 1 view, MAC 4, ETT double lumen x 1 attempt at GHS S/P cardiac cath 04/2018= NO STENTS Trigger finger of both hands S/P RELEASE Past Anesthesia History No Hx of Anesthesia Complications (EXCEPT PONV) and No Family Hx of Anesthesia Complications History of PONV Yes (NO ISSUES WHEN PRE-TX USED) Motion Sickness Screening History of Motion Sickness: Yes Social History Smoking Status: Never smoker Do You Dip or Chew Tobacco: No Hx Alcohol Use: Yes Alcohol type: wine alcohol intake frequency: a few times a week Hx Substance Use: No Exercise / Class Metabolic Activity III < 4 Walking/Shop/Light housework Review of Systems Patient denies chest pain, shortness of breath, reflux, cough, wheezing, palpitations. Physical Exam Vital Signs VITALS BP 118/74 P 65 TEMP 97.7 SP02 98%RA RESP 20 PHYSICAL Full neck and c-spine range of motion. Full TMJ range of motion. TMD 3 finger breaths Mallampati Score 2 Dentition: intact, several caps on molars, implant on molar Lungs: clear throughout to auscultation Cardiac: regular rate and rhythm, no murmurs noted Spine: normal Carotid arteries: negative bruit Extremities: no edema Testing Electrocardiogram Date: 02/19/19 NSR at 61bpm. NS ST/TWA. Chest X-Ray Date: 02/10/19 Tiny right apical pneumothorax. Right chest tube in place. Pulmonary nodules are better evaluated on previous CT. Attention Recommended on follow-up cross- sectional imaging. Echocardiogram Date: 04/30/18 LVEF 55-59%. Mild cLV wall thickness increased. Grade II DD. PASP 36mmhg. No significant valvular disease. Stress Test Date: 02/17/15 Type: exercise Stress ECHO negative for ischemia. EKG response felt to be equivocal with noted history of false positive EKG on past stress testing. No chest discomfort. No significant valvular disease. LVEF 55-59%. 90%MPHR. 8 METS. Cardiac Catheterization Date: 05/02/18 Diffuse minor irregularities with non-obstructive CAD. 30% mid LAD lesion. 30% pRCA lesion. No evidence of left main CAD. Laboratory Results 02/19/19 10:35 Blood Type O Positive 02/19/19 10:35 Antibody Screen NEGATIVE 02/19/19 10:35 01/22/19 SODIUM 140 POTASSIUM 4.8 CHLORIDE 101 CO2 28 BUN 17 CREATININE 0.8 GLUCOSE 110
[2019-02-19 10:51] LABS: Basophils # (auto) 0.03 K/uL (0-0.2); Basophils % (auto) 0.4 %; Eosinophils # (auto) 0.28 K/uL (0-0.5); Eosinophils % (auto) 3.8 %; Hematocrit (blood only) 44.7 % (42-52); Hemoglobin 15.3 g/dL (14.0-18.0); Immature Granulocytes # (auto) 0.05 K/uL (0.00-0.02); Immature Granulocytes % (auto) 0.7 %; Lymphocytes # (auto) 1.33 K/uL (1.2-3.4); Lymphocytes % (auto) 18.2 %; Mean Corpuscular Hgb Conc 34.2 g/dL (32-36); Mean Corpuscular Volume 96.1 fL (80-100); Mean Platelet Volume 10.3 fL (7.4-10.4); Monocytes # (auto) 0.67 K/uL (0.11-0.59); Monocytes % (auto) 9.2 %; Neutrophils # (auto) 4.93 K/uL (1.4-6.5); Neutrophils % (auto) 67.7 %; Platelet Count 232 K/uL (130-400); RDW Coefficient of Variation 13.2 % (11.5-14.5); RDW Standard Deviation 46.3 fL (36.4-46.3); Red Blood Count 4.65 M/uL (4.7-6.1); White Blood Count 7.29 K/uL (4.8-10.8)
[~2019-03-05 05:32] MED LIST: LIDOCAINE HCL 2% 2 ML VIAL/AMP(20MG/ML) INFIL ONE; PROPOFOL IV EMULSION 10 MG/ML 20 ML VIAL IV ONE
[2019-03-05] MEDS ORDERED: HEPARIN SOD 5,000 UNIT/0.5 ML VIAL SQ SCH (06:00)
[2019-03-05] MEDS ORDERED: CEFAZOLIN 2,000 MG/15 ML IV PUSH IV ONE (06:12)
[2019-03-05] MEDS ORDERED: fentaNYL citrate 100 MCG/2 ML VIAL ONE (06:40)
[2019-03-05] MEDS ORDERED: MIDAZOLAM HCL 1 MG/ML 2ML VIAL ONE (06:40)
--- NOTE | 2019-03-05 06:53 | History & Physical Bridge Note ---
Date of Service March 05, 2019 History & Physical Bridge Note I have examined the patient, reviewed the History & Physical and in the interval since the performance of the History & Physical I have noted the following changes of clinical significance: no changes noted
[2019-03-05] MEDS ORDERED: BUPIVACAINE/EPINEPHRINE 0.5% MPF 1:200,000 30 ML VIAL ONE (06:58)
--- NOTE | 2019-03-05 07:06 | Anesthesiology Consultation ---
Date of Service March 05, 2019 Assessment & Plan Chart Review Chart Review: Acceptable Risk for Surgery Consults Requested none NPO Date Last Intake of Fluids: 03/04/19 Time Last Intake of Fluids: 19:00 Date Last Intake of Solids: 03/02/19 Time Last Intake of Solids: 09:00 History Surgery Operation Date: 03/05/19 07:15 Proposed Procedures p Laparoscopic Assisted Colon Resection - Travis Wright, Height/Weight Height: 5 ft 10 in Weight: 95.753 kg Allergies Allergy/AdvReac Type Severity Reaction Status Date / Time adhesive tape Allergy Unknown RED RASH Verified 03/05/19 05:59 Medications Home Medications Medication Instructions Recorded Confirmed Last Taken Tumeric 2 cap PO QAM 11/15/18 03/05/19 02/19/19 08:00 Vitamin C 1,000 mg PO QAM 11/15/18 03/05/19 02/19/19 08:00 albuterol sulfate [Ventolin HFA] 2 puff INHALATION Q6H PRN 11/15/18 03/05/19 11/15/18 00:00 aspirin 81 mg PO QAM 11/15/18 03/05/19 02/19/19 08:00 coenzyme Q10 [CoQ-10] 300 mg PO QAM 11/15/18 03/05/19 02/18/19 esomeprazole magnesium 20 mg PO QAM 11/15/18 03/05/19 02/19/19 08:00 ezetimibe [Zetia] 10 mg PO QAM 11/15/18 03/05/19 03/05/19 04:45 krill oil 500 mg PO QAM 11/15/18 03/05/19 02/19/19 08:00 levothyroxine 125 mcg PO QAM 11/15/18 03/05/19 03/05/19 04:45 omega 4-zbu-afc-fish oil [Fish Oil] 3 cap PO QAM 11/15/18 03/05/19 02/19/19 08:00 rosuvastatin [Crestor] 20 mg PO QAM 11/15/18 03/05/19 03/05/19 04:45 Active Medications Generic Name Dose Route Start Last Admin Trade Name Freq PRN Reason Stop Dose Admin Lactated Ringer's 1,000 mls @ 15 mls/hr 03/06/19 06:00 03/05/19 06:13 Lr IV 03/07/19 05:59 15 mls/hr .Q24H GUI Administration Past Medical History Medical History Hypothyroidism CAD (coronary artery disease) NON-OBSTRUCTIVE PER 04/2018 CATH Dyslipidemia Reflux esophagitis Diverticular disease PERFORATION 11/2018 GERD (gastroesophageal reflux disease) CONTROLLED Pulmonary nodules Granulomatous disease Past Family History Family History Father Lung cancer Brother Heart attack, Onset Age: 56 Past Surgical History Surgical History H/O colonoscopy H/O vasectomy H/O repair of left rotator cuff History of surgical removal of ganglion cyst S/P right knee arthroscopy S/P left knee arthroscopy H/O decompression of ulnar nerve B/L History of carpal tunnel release R/L Trigger finger of both hands S/P RELEASE History of lung surgery Thoracoscopy with wedge resection, R VATs= 02/10/19= Grade 1 view, MAC 4, ETT double lumen x 1 attempt at S S/P cardiac cath 04/2018= NO STENTS Social History Smoking Status: Never smoker Do You Dip or Chew Tobacco: No Hx Alcohol Use: Yes Alcohol type: wine alcohol intake frequency: a few times a week Hx Substance Use: No Physical Exam Vital Signs Last Vital Signs Temp 36.5 C 03/05/19 06:11 Pulse 64 03/05/19 06:11 Resp 20 03/05/19 06:11 BP 153/86 H 03/05/19 06:11 Pulse Ox 97 03/05/19 06:11 Testing Laboratory Results 02/19/19 10:35 Blood Type O Positive 02/19/19 10:35 Antibody Screen NEGATIVE 02/19/19 10:35
[2019-03-05] MEDS ORDERED: ONDANSETRON INJ 2 MG/ML 2 ML VIAL IV PRN ×2 (07:08→09:47)
[2019-03-05] MEDS ORDERED: ePHEDrine sulfate 50 MG/ML AMP IV PRN (07:08)
[2019-03-05] MEDS ORDERED: ATROPINE SULFATE 0.1 MG/ML 10ML SYR IV PRN (07:08)
[2019-03-05] MEDS ORDERED: DEXAMETHASONE SOD INJ 4 MG/ML VIAL IV PRN (07:08)
[2019-03-05] MEDS ORDERED: SCOPOLAMINE 1.5 MG TDSY ONE (07:10)
[2019-03-05] MEDS ORDERED: PROPOFOL IV EMULSION 10 MG/ML 20 ML VIAL IV ONE (07:43)
[2019-03-05] MEDS ORDERED: NEOSTIGMINE METHYLSULFATE 5 MG/5 ML SYR ONE (07:43)
[2019-03-05] MEDS ORDERED: ONDANSETRON INJ 2 MG/ML 2 ML VIAL ONE (07:43)
[2019-03-05] MEDS ORDERED: GLYCOPYRROLATE 0.2 MG/ML VIAL ONE (07:43)
[2019-03-05] MEDS ORDERED: ROCURONIUM BROMIDE 10 MG/ML 5 ML VIAL ONE (07:43)
[2019-03-05] MEDS ORDERED: LIDOCAINE HCL 2% 2 ML VIAL/AMP(20MG/ML) INFIL ONE (07:43)
[2019-03-05] MEDS ORDERED: DEXAMETHASONE SOD INJ 4 MG/ML VIAL ONE (07:43)
[2019-03-05] MEDS ORDERED: SODIUM CHLORIDE 0.9% INJ 10 ML VIAL ONE (07:53)
[2019-03-05] MEDS ORDERED: HYDROmorphone INJ 2 MG/ML SYR/VIAL ONE (07:54)
--- NOTE | 2019-03-05 09:46 | Operative Report ---
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 After successful intubation a Suggs catheter was placed and the abdomen was shaved. The patient was placed in a low lithotomy position in [place] [facility]. The abdomen was then sterilely prepped and draped in usual fashion. We began with a supraumbilical incision with an 11 blade scalpel and carried this down through soft tissue using cautery. The anterior rectus fascia was opened using electrocautery and 2 #0 Vicryl stay sutures were placed. Peritoneum was entered using blunt finger penetration and a finger sweep was performed. A 12 mm Zuñiga trocar was placed and the abdomen was insufflated to 20 mmHg. Laparoscope was inserted and the abdomen and 360 degrees. A right lower quadrant 12 mm trocar, right mid abdominal 5 mm trocar and eventually a left lower quadrant 5 mm trocar would all be placed. The patient was placed in a Trendelenburg position and slightly air planed to the right. There were a lot of inflammatory adhesions to the anterior abdominal wall involving omentum and small bowel as well as a portion of the left colon. These were taken down using sharp scissor lysis blunt dissection and small amounts of the harmonic scalpel. Once we had these adhesions down we then began mobilizing the colon. We started down at the pelvic brim and came proximally using primarily the harmonic scalpel. The mesentery of the left colon was tightly adhesed to the left paracolic gutter. This made dissection somewhat difficult. We had to use small amounts of harmonic scalpel as well as blunt dissection to continue to come up along where the white line of Toldt would normally be. Because of the inflammatory process we had to create a plane trying to stay as close to the colon as possible. This did make visualization of the left ureter impossible however we never truly entered the retroperitoneum and stayed close to the colon. After mobilizing the left colon and sigmoid colon down to the peritoneal reflection in the pelvis as well as up almost to the splenic flexure proximally we then picked a spot on the rectosigmoid colon and made a small window in the mesentery. This was distal to any visible diverticuli and certainly well away from the inflamed /thickened portion of his colon. We used 2 firings of a ZAFAR purple stapler to transect the colon distally. We then used a harmonic scalpel to take down the mesentery of the colon starting at the staple line and coming proximally. We placed a marking stitch on viable bowel proximal to the area of inflammation. We took the mesentery using the harmonic scalpel until we reached this suture line. We then grasped the stapled end of the colon to be removed with a grasper and extended the left lower quadrant incision laterally and medially. We used cautery to take this down through the fascia until we could deliver the colon. We protected the wound with sponges. We delivered the colon easily out through this incision until we identified the marking stitch. We then used a ZAFAR stapler to transect the colon just proximal to the marking stitch. The specimen was passed off to be sent to pathology. The colon appeared viable without any ischemia with a good blood supply. We used scissors to take off the staple line and used sizers to estimate the lumen to be 28 mm. 2-0 silk was used to place a pursestring. The anvil of a 28 mm circular stapler was advanced into the lumen and secured using the pursestring. This was dunked back down into the abdominal cavity. At this point we both changed our gloves. We closed the fascia using 0 PDS in running fashion. We then reinsufflated the abdomen. The anvil laid easily over the pelvic brim to create a tension-free anastomosis. We used sizers to come in the rectal stump without difficulty. The handle of the circular stapler was then brought in through the rectal stump. We deployed the spike anterior to the staple line so that the staple line would not be involved with the anastomosis. We secured the anvil to the handle and secured them together and fired it creating a circular functional end and anastomosis. When we removed the handle both donut rings were intact. We thoroughly irrigated the pelvis. I then clamped the colon proximal to the anastomosis. We inflated the anastomosis under water with a rigid sigmoidoscope. It was airtight with no evidence of an anastomotic leak. I continued to irrigate until all the irrigant was clear. The colon laid straight without any tension. A 10 flat Terrance- Rockwell drain was placed into the pelvis and brought out through 1 of the trocar sites and secured using 2-0 silk. There was adequate hemostasis. At the end of the procedure we took a final look around the abdomen and and saw no other gross abnormalities. The trochars were all removed and the abdomen was desufflated. The fascia of the camera port was closed using 0 Vicryl in a [id number] fashion. All the wounds were irrigated. The large incision was closed using 3- 0 Vicryl for deep layers and 4-0 Monocryl for skin. Trocar sites were closed using 4-0 Monocryl. Marcaine was injected around all of the incisions for postoperative analgesia. Skin glue was used as a dressing. The patient was awakened, extubated and transferred to recovery in stable condition. My physician family readiness support assistant was present through the entire case. He helped prep the patient. He helped retract and run the camera throughout my procedure. He also helped with the anastomosis wound closure and dressing placement. I attest to the content of the Intraoperative Record and any orders documented therein. Any exceptions are noted below.
[2019-03-05] MEDS ORDERED: ALBUTEROL HFA 8 GM INHALER INH PRN (09:47)
[2019-03-05] MEDS ORDERED: HYDROmorphone INJ 1 MG/ML SYRINGE IV PRN (09:47)
[2019-03-05] MEDS: fentaNYL citrate 100 MCG/2 ML VIAL IV PRN ×2 (09:52→10:03)
--- NOTE | 2019-03-05 10:18 | Anesthesiology Progress Note ---
Date of Service March 05, 2019 Anesthesia Post Procedure Vital Signs Vital Signs: Temp Pulse Pulse Resp BP Pulse Ox 03/05/19 10:15 84 15 154/88 H 95 03/05/19 10:05 82 18 155/92 H 100 03/05/19 09:55 82 15 151/87 H 100 03/05/19 09:45 37.0 C 90 16 157/85 H 99 03/05/19 06:11 36.5 C 64 20 153/86 H 97 Pain Intensity Abdomen: Pain Intensity: 3 Notes Mental Status: alert / awake / arousable and participated in evaluation Patient Amnestic to Procedure: Yes Nausea / Vomiting: adequately controlled Pain: adequately controlled Airway Patency, RR, SpO2: stable & adequate BP & HR: stable & adequate Hydration State: stable & adequate Anesthetic Complications: no major complications apparent
[2019-03-05] MEDS: HYDROmorphone INJ 2 MG/ML SYR/VIAL IV PRN ×2 (10:22→10:29)
[2019-03-05] MEDS: LACTATED RINGER'S 1,000 ML IV SCH ×2 (11:33→19:15)
[2019-03-05] MEDS: CEFAZOLIN 2000MG 2,000 MG/15 ML SYR IV SCH ×2 (14:12→22:33)
[2019-03-05] MEDS: HYDROmorphone INJ 1 MG/ML SYRINGE IV PRN ×2 (14:16→19:14)
[2019-03-06] MEDS: ACETAMINOPHEN 1,000 MG/100 ML VIAL IV PRN (00:01)
[2019-03-06] MEDS: LACTATED RINGER'S 1,000 ML IV SCH ×3 (03:00→17:30)
[2019-03-06] MEDS ORDERED: HEPARIN SOD 5,000 UNIT/0.5 ML VIAL SQ SCH (06:00)
[2019-03-06] MEDS ORDERED: LR 15ML/HR IV SCH (06:00)
[2019-03-06] MEDS ORDERED: CEFAZOLIN 2000MG 2,000 MG/15 ML SYR IV SCH (06:00)
[2019-03-06] MEDS: CEFAZOLIN 2000MG 2,000 MG/15 ML SYR IV SCH ×3 (06:20→22:07)
[2019-03-06] MEDS: HYDROmorphone INJ 1 MG/ML SYRINGE IV PRN ×2 (06:42→11:57)
--- NOTE | 2019-03-06 07:28 | Surgery Progress Note ---
Date of Service March 06, 2019 Assessment & Plan (1) Diverticulitis of colon: POD 1 lap sigmoid colectomy can have clears as above. doing well. had to be straight cathed for urinary retention otherwise no complaints. will start flomax 0.4 mg daily increase activity keep on clears until bowel fx Subjective no nausea, walked in hallway, some periumbilical pain, farrar removed this AM Physical Exam Gastrointestinal (Abdomen): Inspection/Auscultation: + abdominal surgical incision (clean, dry); abdomen not distended Percussion/Palpation: abdomen soft Results & Data Vital Signs (Past 12 Hours) Vital Signs Temp Pulse Resp BP Pulse Ox 03/06/19 07:00 36.7 C 62 16 121/68 90 03/06/19 03:19 36.8 C 59 L 16 115/71 93 03/05/19 23:19 36.7 C 85 20 121/68 96 03/05/19 19:56 36.9 C 87 17 123/70 93
[2019-03-06 07:38] LABS: Basophils # (auto) 0.03 K/uL (0-0.2); Basophils % (auto) 0.3 %; Eosinophils # (auto) 0.03 K/uL (0-0.5); Eosinophils % (auto) 0.3 %; Hematocrit (blood only) 41.5 % (42-52); Immature Granulocytes # (auto) 0.02 K/uL (0.00-0.02); Immature Granulocytes % (auto) 0.2 %; Lymphocytes # (auto) 1.47 K/uL (1.2-3.4); Mean Corpuscular Hgb Conc 33.7 g/dL (32-36); Mean Corpuscular Volume 96.1 fL (80-100); Monocytes # (auto) 0.86 K/uL (0.11-0.59); Monocytes % (auto) 9.9 %; Neutrophils # (auto) 6.24 K/uL (1.4-6.5); Neutrophils % (auto) 72.3 %; Platelet Count 230 K/uL (130-400); RDW Coefficient of Variation 12.9 % (11.5-14.5); RDW Standard Deviation 44.8 fL (36.4-46.3); Red Blood Count 4.32 M/uL (4.7-6.1); White Blood Count 8.65 K/uL (4.8-10.8)
[2019-03-06 08:03] LABS: Albumin Level 3.3 gm/dl (3.4-5.0); Calcium 8.7 mg/dl (8.5-10.1); Creatinine Clr Calc Pharmacy 86.4 ml/min; Est GFR (African American) 89.8; Est GFR (Non-African American) 77.5; Potassium 3.7 mmol/L (3.5-5.1)
[2019-03-06 08:06] LABS: Albumin Globulin Ratio 0.9 (0.9-2); Bilirubin,Total 0.9 mg/dl (0.2-1); Globulin 3.7 gm/dl (2.5-4.0)
--- NOTE | 2019-03-06 08:20 | Anesthesiology Progress Note ---
Date of Service March 06, 2019 Anesthesia Post Procedure Vital Signs Vital Signs: Temp Pulse Pulse Resp BP Pulse Ox 03/06/19 07:00 36.7 C 62 16 121/68 90 03/06/19 03:19 36.8 C 59 L 16 115/71 93 03/05/19 23:19 36.7 C 85 20 121/68 96 03/05/19 19:56 36.9 C 87 17 123/70 93 03/05/19 15:39 36.7 C 80 18 119/69 97 03/05/19 14:00 36.6 C 82 16 143/79 H 95 03/05/19 12:46 75 16 123/74 95 03/05/19 12:00 78 16 117/69 96 03/05/19 11:26 36.6 C 77 16 128/74 94 03/05/19 11:25 36.9 C 77 14 144/78 H 97 03/05/19 10:45 36.3 C L 74 12 129/72 96 03/05/19 10:35 77 16 150/87 H 100 03/05/19 10:25 84 19 149/90 H 98 03/05/19 10:15 84 15 154/88 H 95 03/05/19 10:05 82 18 155/92 H 100 03/05/19 09:55 82 15 151/87 H 100 03/05/19 09:45 37.0 C 90 16 157/85 H 99 Pain Intensity Abdomen: Pain Intensity: 5 Notes Mental Status: alert / awake / arousable and participated in evaluation Nausea / Vomiting: adequately controlled Pain: adequately controlled Airway Patency, RR, SpO2: stable & adequate BP & HR: stable & adequate Hydration State: stable & adequate
[2019-03-06 10:28] LABS: Partial Thromboplastin Ratio 0.8; Partial Thromboplastin Time 22.2 Seconds (21.0-31.0); Prothrombin Time 10.1 Seconds (9.0-12.0)
[2019-03-06] MEDS: ENOXAPARIN INJ 40 MG/0.4 ML SYR SQ SCH (11:57)
[2019-03-06] MEDS: TAMSULOSIN HCL 0.4 MG CAP PO SCH (20:24)
[2019-03-07] MEDS: LACTATED RINGER'S 1,000 ML IV SCH (01:20)
[2019-03-07 06:17] LABS: Albumin Level 3.3 gm/dl (3.4-5.0); BUN Creatinine Ratio 9.8 (10-20); Calcium 8.3 mg/dl (8.5-10.1); Creatinine Clr Calc Pharmacy 101.1 ml/min; Est GFR (African American) 106.7; Est GFR (Non-African American) 92.1; Potassium 3.6 mmol/L (3.5-5.1)
[2019-03-07] MEDS: CEFAZOLIN 2000MG 2,000 MG/15 ML SYR IV SCH (06:18)
[2019-03-07 06:20] LABS: Bilirubin,Total 1.1 mg/dl (0.2-1); Globulin 3.4 gm/dl (2.5-4.0); Total Protein 6.7 gm/dl (6.4-8.2)
[2019-03-07] MEDS: ACETAMINOPHEN 1,000 MG/100 ML VIAL IV PRN ×2 (06:23→20:08)
[2019-03-07 06:26] LABS: Basophils # (auto) 0.04 K/uL (0-0.2); Basophils % (auto) 0.5 %; Eosinophils # (auto) 0.29 K/uL (0-0.5); Eosinophils % (auto) 3.4 %; Hematocrit (blood only) 39.3 % (42-52); Hemoglobin 13.4 g/dL (14.0-18.0); Immature Granulocytes # (auto) 0.02 K/uL (0.00-0.02); Immature Granulocytes % (auto) 0.2 %; Lymphocytes # (auto) 1.29 K/uL (1.2-3.4); Lymphocytes % (auto) 15.2 %; Mean Corpuscular Hgb Conc 34.1 g/dL (32-36); Mean Corpuscular Volume 95.4 fL (80-100); Mean Platelet Volume 10.3 fL (7.4-10.4); Monocytes # (auto) 0.73 K/uL (0.11-0.59); Monocytes % (auto) 8.6 %; Neutrophils # (auto) 6.13 K/uL (1.4-6.5); Neutrophils % (auto) 72.1 %; Platelet Count 227 K/uL (130-400); Red Blood Count 4.12 M/uL (4.7-6.1)
--- NOTE | 2019-03-07 07:44 | Surgery Progress Note ---
Date of Service March 07, 2019 Assessment & Plan (1) Perforation of sigmoid colon due to diverticulitis: POD 2 lap sigmoid wants to stay on clears for now decrease IVF labs stable ambulating pt seen. as above. voiding now pain manageable. awaiting return of bowel fx stay on clears for now. Subjective scant flatus, felt a little bloated but no nausea, able to void overnight Physical Exam Gastrointestinal (Abdomen): Inspection/Auscultation: + abdomen distended (minimal), + abdominal surgical incision (clean, dry) and + abdominal surgical drain present (20 cc, serosang) Percussion/Palpation: abdomen soft Results & Data Vital Signs (Past 12 Hours) Vital Signs Temp Pulse Resp BP Pulse Ox 03/06/19 23:38 36.8 C 75 16 121/69 93
[2019-03-07] MEDS ORDERED: HYDROCODONE/ACETAMOPHEN 5/325MG TAB PO PRN (08:30)
[2019-03-07] MEDS: NSS + 20MEQ KCL 20 MEQ/1,000 ML BAG IV SCH (08:53)
[2019-03-07] MEDS: ENOXAPARIN INJ 40 MG/0.4 ML SYR SQ SCH (09:30)
[2019-03-07] MEDS ORDERED: ALBUTEROL HFA 8 GM INHALER INH PRN (12:55)
[2019-03-07] MEDS: LEVOTHYROXINE SODIUM 125 MCG TABLET PO SCH (13:21)
[2019-03-07] MEDS: TAMSULOSIN HCL 0.4 MG CAP PO SCH (21:44)
[2019-03-08] MEDS: NSS + 20MEQ KCL 20 MEQ/1,000 ML BAG IV SCH (05:10)
[2019-03-08] MEDS: LEVOTHYROXINE SODIUM 125 MCG TABLET PO SCH (07:34)
[2019-03-08] MEDS: PANTOprazole 40 MG TAB PO SCH (08:36)
[2019-03-08] MEDS: ENOXAPARIN INJ 40 MG/0.4 ML SYR SQ SCH (08:36)
[2019-03-08] MEDS: ROSUVASTATIN CALCIUM 20 MG TAB PO SCH (08:36)
[2019-03-08] MEDS: EZETIMIBE 10 MG TABLET PO SCH (08:36)
--- NOTE | 2019-03-08 09:14 | Surgery Progress Note ---
Date of Service March 08, 2019 Assessment & Plan (1) Diverticulitis of colon: POD 3 doing well will advance to full liquids. awaiting full return of bowel fx hepwell ivf Subjective feeling better each day. +flatus. no bm yet. no n/v. voiding fine. Physical Exam Physical Exam: sitting in a chair. comfortable. nad abd: soft. wounds look good. Results & Data Vital Signs (Past 12 Hours) Vital Signs Temp Pulse Resp BP Pulse Ox 03/08/19 07:20 36.9 C 74 16 138/79 94 03/07/19 22:57 36.6 C 65 16 127/79 93
[2019-03-08] MEDS: TAMSULOSIN HCL 0.4 MG CAP PO SCH (21:21)
[2019-03-09] MEDS: LEVOTHYROXINE SODIUM 125 MCG TABLET PO SCH (07:38)
[2019-03-09] MEDS: PANTOprazole 40 MG TAB PO SCH (09:34)
[2019-03-09] MEDS: ROSUVASTATIN CALCIUM 20 MG TAB PO SCH (09:34)
[2019-03-09] MEDS: ENOXAPARIN INJ 40 MG/0.4 ML SYR SQ SCH (09:34)
[2019-03-09] MEDS: EZETIMIBE 10 MG TABLET PO SCH (09:34)
--- NOTE | 2019-03-09 09:57 | Surgery Progress Note ---
Date of Service March 09, 2019 Assessment & Plan (1) Diverticulitis of colon: POD 4 doing well awaiting bowel fx hopeful d/c tomorrow. Subjective feeling well. no new complaints. continues to pass flatus but no bm yet. obinna full liquids. pain improving. Physical Exam Physical Exam: alert. nad VIRAJ serous abd: soft. wounds look good. Results & Data Vital Signs (Past 12 Hours) Vital Signs Temp Pulse Resp BP Pulse Ox 03/09/19 07:25 36.5 C 74 18 146/81 H 96 03/08/19 23:19 37.2 C 90 18 104/65 92
[2019-03-09] MEDS: TAMSULOSIN HCL 0.4 MG CAP PO SCH (21:03)
[2019-03-09] MEDS: ACETAMINOPHEN 1,000 MG/100 ML VIAL IV PRN (22:28)
[2019-03-10] MEDS: LEVOTHYROXINE SODIUM 125 MCG TABLET PO SCH (07:37)
[2019-03-10] MEDS: PANTOprazole 40 MG TAB PO SCH (07:38)
[2019-03-10] MEDS ORDERED: IBUPROFEN 600 MG TAB PO PRN (07:48)
--- NOTE | 2019-03-10 07:48 | Surgery Progress Note ---
Date of Service March 10, 2019 Assessment & Plan (1) Diverticulitis of colon: POD 5 lap sigmoid colectomy keep on full liquids until bowels are moving Subjective some suprapubic pain last night, having flatus but no BM, tolerating full liquids Physical Exam Gastrointestinal (Abdomen): Inspection/Auscultation: + abdominal surgical incision (clean, dry); abdomen not distended Percussion/Palpation: abdomen soft Results & Data Vital Signs (Past 12 Hours) Vital Signs Temp Pulse Resp BP Pulse Ox 03/09/19 23:05 36.9 C 75 16 121/70 95
[2019-03-10] MEDS: ROSUVASTATIN CALCIUM 20 MG TAB PO SCH (08:33)
[2019-03-10] MEDS: ENOXAPARIN INJ 40 MG/0.4 ML SYR SQ SCH (08:33)
[2019-03-10] MEDS: EZETIMIBE 10 MG TABLET PO SCH (08:33)
--- NOTE | 2019-03-10 08:54 | Surgery Progress Note ---
Date of Service March 10, 2019 Assessment & Plan (1) Diverticulitis of colon: no acute issues. awaiting BM. d/c soon after BM Subjective having some lower abdominal cramping/discomfort. feels need for BM but no action yet. no n/v. Physical Exam Physical Exam: alert. nad VIRAJ serous abd: soft. wounds look good. Results & Data Vital Signs (Past 12 Hours) Vital Signs Temp Pulse Pulse Resp BP Pulse Ox 03/10/19 07:49 36.3 C L 70 12 120/74 97 03/09/19 23:05 36.9 C 75 16 121/70 95
--- OUTSIDE RECORDS SUMMARY | 2019-03-10 19:59 | External Medical Summary | Continuity of Care Document ---
:1955 Author Name Lexis Obrien, Provider Address Unavailable Unavailable , Care Team Providers Name Role Phone Libby Bridges Unavailable [email or web address] Travis Wright DO Unavailable [email or web address] Jonas Larry Unavailable Unavailable Unavailable Unavailable Unavailable Problems Diverticular disease (562.10) (K57.90) Allergies and Adverse Reactions No Known Drug Allergies (Allergy) Medications Zetia 10 MG Oral Tablet; TAKE 1 TABLET AT BEDTIME. Start: 22-Jan-2019 Refills: 0 Crestor 40 MG Oral Tablet; TAKE 1 TABLET DAILY. Start: 22-Jan-2019 Refills: 0 Levoxyl 125 MCG Oral Tablet; TAKE 1 TABLET DAILY. Start: 22-Jan-2019 Refills: 0 Amoxicillin-Pot Clavulanate 875-125 MG O ral Tablet; TAKE 1 TABLET TWICE DAILY WITH MEALS DO Travis Wright Start: 19-Feb-2019 Quantity: 28 Refills: 0 Breo Ellipta 100-25 MCG/INH Inhalation A erosol Powder Breath Activated; USE 1 INHALATION ONCE DAILY. Start: 19-Feb-2019 Refills: 0 28 Inhaler Pack Aspirin Low Dose 81 MG Oral Tablet Delayed Release; TAKE 1 T ABLET DAILY. Start: 19-Feb-2019 Refills: 0 NexIUM 20 MG Oral Capsule Delayed Release; TAKE 1 CAPSULE ON CE DAILY. Start: 19-Feb-2019 Refills: 0 Suprep Bowel Prep Kit 17.5-3.13-1.6 GM/1 77ML Oral Solution; USE ACCORDING TO THE SPLIT DOSE INSTRUCTIONS LOUIS Miller Start: 24-Feb-2019 Quantity: 1 2 x 177 ML Bottle Refills: 0 Procedures Colonoscopy Date: 22-Jan-2019 History of carpal tunnel surgery Status: Completed History of Arthrotomy Of Knee With Statu s: Completed Medial Meniscectomy History of lung biopsy Status: Completed History of Colon Surgery Status: Complet ed 05-Mar-2019 0:00 Immunizations Immunizations not documented Family History Father Family history of malignant neoplasm (V16.9) (Z80.9) Status: Active Plan of Treatment Planned Encounters Appointment; Matt WrightewDO Start: 19-Mar-2019 10:20 R equest Planned Observations Planned Goals not documented Results CBC With DIFF Laboratory: [facility] Laboratory [address] [facility] [address] tel: 19-Feb-2019 10:35 WBC 7.29 K/uL Range: 4.8-10.8 K/u L RBC 4.65 {M/uL} (below low threshold) Ra nge: 4.7-6.1 M/uL HEMOGLOBIN 15.3 g/dL Range: 14.0-18.0 g /dL HEMATOCRIT 44.7 % Range: 42-52 % MCV 96.1 fL Range: 80-100 fL MCH 32.9 pg Range: 25-34 pg MEAN CORPUSCULAR HGB CONC 34.2 g/dL Rang e: 32-36 g/dL RED CELL DISTRIBUTION WIDTH SD 46.3 Rang e: 36.4-46.3 fL fL RED CELL DISTRIBUTION WIDTH CV 13.2 % Ra nge: 11.5-14.5 % PLATELET COUNT 232 K/uL Range: 130-400 K/uL MEAN PLATELET VOLUME 10.3 fL Range: 7.4 -10.4 fL NEUT % 67.7 % Range: % LYMPH % 18.2 % Range: % MONO % 9.2 % Range: % EOS % 3.8 % Range: % BASO % 0.4 % Range: % IG% 0.7 % Range: % Comments: IG paramet er reflects the combination of Metas, Myelos andPromyelocytes. Neutrophils (Auto) 4.93 K/uL Range: 1. 4-6.5 K/uL LYMPH ABS # 1.33 K/uL Range: 1.2-3.4 K/ uL MONO ABS # 0.67 K/uL (above high Range: 0.11-0.59 K/uL threshold) EOS ABS # 0.28 K/uL Range: 0-0.5 K/uL BASO ABS # 0.03 K/uL Range: 0-0.2 K/uL IG# 0.05 K/uL (above high threshold) Ran ge: 0.00-0.02 K/uL BLOOD BANK HOLD TUBE Laboratory: [facility] Laboratory [address] [facility] [address] tel: 05-Mar-2019 5:48 BLOOD BANK HOLD TUBE Run: 03/05/19625 Susan Santana Pathology Report Name: FABIAN LEWIS Age/Sex: 63/M [facility] [id number] Unit: [id number] Status: [facility] Room/Bed:Re03/05/19 Disch: Att Dr: Travis Wright, D Spec: [id number] Collected: 03/05/19Received: 03/05/[address]: Travis Wright, DOCopy To: Jonas Larry MD(HUGH)Ord Prods: (NO ORDERED PRODUCTS)Ord Tests: (NO REPORTABLE TESTS) Test Result Flag Reference Site <No reportable results> Tests: Date Time Order Change Action User03/04/19 1515 Blood Bank Hold 1 NEW [id number] END OF REPORT Encounters Appointment; Travis Wright DO 05-Mar-2019 7:15 Encounter Diagnosis: Problem not documented Appointment; Travis Wright DO 19-Feb-2019 10:20 Encounter Diagnosis: Problem not documented Appointment; Travis Wright DO 22-Jan-2019 9:30 Encounter Diagnosis: Problem not documented Appointment; Travis Wright DO 19-Mar-2019 10:20 Encounter Diagnosis: Problem not documented
--- NOTE | 2019-03-11 14:11 | Discharge Summary ---
PRIMARY DISCHARGE DIAGNOSES: 1. Complicated diverticulitis. 2. Urinary retention. SECONDARY DISCHARGE DIAGNOSES: 1. Coronary artery disease. 2. Hypothyroidism. 3. Dyslipidemia. 4. Gastroesophageal reflux disease. PROCEDURE PERFORMED: Laparoscopic sigmoid colon resection and enterolysis. HOSPITAL COURSE: The patient is a 63-year-old male with recent complicated diverticulitis, now taken to the operating room for a semi-elective sigmoid resection. The procedure was well tolerated. He was transferred to the surgical floor postoperatively. Subcutaneous Lovenox was used for DVT prophylaxis. He was started on clear liquids on postoperative day 1. He had some urinary retention after the Suggs catheter was removed. He was straight cathed later in the day 1 time. He was also started on Flomax. He was to begin voiding overnight and into day 2. He was somewhat bloated on day 2, but by day 3 was having increasing flatus. He was able to tolerate full liquid diet. He continued to increase activity on day #4. He was tolerating full liquids. Day 5 he began moving his bowels. He was able to tolerate a low residue diet. His abdomen was soft. VIRAJ drainage was minimal and the drain was removed. His incisions were clean and dry. He was stable for discharge. DISCHARGE INSTRUCTIONS: Discharge home. Follow up with Dr. Wright in 7-10 days. DISCHARGE MEDICATIONS: [place] 1-2 tablets every 4 hours as needed. Continue home medications, albuterol 2 puffs q. 6 hours as needed, aspirin 81 mg daily, Zetia 10 mg daily, levothyroxine 125 mcg daily, Crestor 20 mg daily, tumeric supplement, vitamin C supplement, omega 3 supplement, Krill oil supplement, Coenzyme Q10 300 mg daily and esomeprazole 20 mg daily. [facility]
== END 2019-03-10 11:02 | disposition home or self-care (01) | DRG 331 ==
LOC: ASU 05:32 → 3W 11:02